=== PATIENT | female | born 1945 | race Caucasian/White ===

== ENCOUNTER 2017-11-11 15:08 | Inpatient (IN) | payer MEDICARE, BC ==
[~2017-11-11] VITALS: Ht 152.4 cm; Wt 85.5 kg
[~2017-11-11 15:08] MED LIST: ASPI-183 PO; ATAC32TA PO; CALC1CAP PO; CLON-481 PO; D31000CA3 PO; DOXA1TAB35 PO; FURO1TAB60 PO; LANTUS2P SQ; MIRA33504 PO; NIFE60TA58 PO; OMEG1CAP50 PO; PERI8.6T PO; RENACAP2 PO; VITA10002 PO
[2017-11-11 15:09] VITALS: BP 115/56; PULSE 76; RESP 12; TEMP 97.7; O2SAT 95
[2017-11-11 16:55] LABS: AUTOMATED NEUTROPHIL # 7.1 TH/MM3 (1.8-7.7); BASOPHIL # 0.1 TH/MM3 (0-0.2); EOSINOPHIL # 0.3 TH/MM3 (0-0.4); EOSINOPHIL % 3.3 % (0.0-4.0); HEMATOCRIT 37.6 % (35.0-46.0); HEMO FLAGS DIFF FINAL; LYMPH % 14.4 % (9.0-44.0); LYMPHOCYTE # 1.4 TH/MM3 (1.0-4.8); MEAN CELL VOLUME 90.2 FL (80.0-100.0); MEAN CORPUSCULAR HEMOGLOBIN 28.5 PG (27.0-34.0); MEAN CORPUSCULAR HGB CONC 31.6 % (32.0-36.0); MONO % 9.8 % (0.0-8.0); NEUT % 71.5 % (16.0-70.0); PLATELET COUNT 294 TH/MM3 (150-450); RED BLOOD COUNT 4.17 MIL/MM3 (4.00-5.30); RED CELL DISTRIBUTION WIDTH 17.6 % (11.6-17.2); WHITE BLOOD COUNT 9.9 TH/MM3 (4.0-11.0)
[2017-11-11 17:06] VITALS: BP 159/71; PULSE 75; RESP 14; O2SAT 96
[2017-11-11 17:08] LABS: APTT (PATIENT) 23.6 SEC (24.3-30.1); PROTHROMBIN TIME - PATIENT 10.5 SEC (9.8-11.6)
[2017-11-11 17:15] LABS: ALT (GPT) 16 U/L (10-53); ANION GAP 17 MEQ/L (5-15); AST (GOT) 14 U/L (15-37); BICARBONATE 22.4 MEQ/L (21.0-32.0); BLOOD UREA NITROGEN 55 MG/DL (7-18); CHLORIDE 93 MEQ/L (98-107); GLOMERULAR FILTRATION RATE 3 ML/MIN (>89); MAGNESIUM 3.5 MG/DL (1.5-2.5); POTASSIUM 4.9 MEQ/L (3.5-5.1); SODIUM (NA) 132 MEQ/L (136-145)
[2017-11-11 17:18] LABS: ALKALINE PHOSPHATASE 116 U/L (45-117); CREATINE KINASE 125 U/L (26-192); TOTAL BILIRUBIN ADULT 0.4 MG/DL (0.2-1.0)
[2017-11-11 17:34] LABS: CKMB 4.5 NG/ML (0.5-3.6)
--- NOTE | 2017-11-11 17:34 | PD ---
Physical Exam Date Seen by Provider: Nov 11, 2017 Narrative This patient presents with multiple complaints including shortness of breath for the last year and a half, dizziness for the last year and a half. She reports rectal bleeding X 1 today. She has been seen by her PMD, nephrology, and GI with no etiology found. She has refused EGD. Data Data Last Documented VS Vital Signs Date Time Temp Pulse Resp B/P (MAP) Pulse Ox O2 Delivery O2 Flow Rate FiO2 11/11/17 17:06 75 14 159/71 (100) 96 11/11/17 17:06 Room Air 11/11/17 15:09 97.7 Orders Orders Electrocardiogram (11/11/17 15:16) Complete Blood Count With Diff (11/11/17 15:16) Comprehensive Metabolic Panel (11/11/17 15:16) Magnesium (Mg) (11/11/17 15:16) Ckmb (Isoenzyme) Profile (11/11/17 15:16) Troponin I (11/11/17 15:16) Act Partial Throm Time (Ptt) (11/11/17 15:16) Prothrombin Time / Inr (Pt) (11/11/17 15:16) Urinalysis - C+S If Indicated (11/11/17 15:16) CKMB (11/11/17 16:20) CKMB% (11/11/17 16:20) Labs Laboratory Tests Test 11/11/17 16:20 White Blood Count 9.9 TH/MM3 Red Blood Count 4.17 MIL/MM3 Hemoglobin 11.9 GM/DL Hematocrit 37.6 % Mean Corpuscular Volume 90.2 FL Mean Corpuscular Hemoglobin 28.5 PG Mean Corpuscular Hemoglobin Concent 31.6 % Red Cell Distribution Width 17.6 % Platelet Count 294 TH/MM3 Mean Platelet Volume 9.9 FL Neutrophils (%) (Auto) 71.5 % Lymphocytes (%) (Auto) 14.4 % Monocytes (%) (Auto) 9.8 % Eosinophils (%) (Auto) 3.3 % Basophils (%) (Auto) 1.0 % Neutrophils # (Auto) 7.1 TH/MM3 Lymphocytes # (Auto) 1.4 TH/MM3 Monocytes # (Auto) 1.0 TH/MM3 Eosinophils # (Auto) 0.3 TH/MM3 Basophils # (Auto) 0.1 TH/MM3 CBC Comment DIFF FINAL Differential Comment Prothrombin Time 10.5 SEC Prothromb Time International Ratio 1.0 RATIO Activated Partial Thromboplast Time 23.6 SEC Blood Urea Nitrogen 55 MG/DL Creatinine 12.97 MG/DL Random Glucose 233 MG/DL Total Protein 7.4 GM/DL Albumin 3.4 GM/DL Calcium Level 7.9 MG/DL Magnesium Level 3.5 MG/DL Alkaline Phosphatase 116 U/L Aspartate Amino Transf (AST/SGOT) 14 U/L Alanine Aminotransferase (ALT/SGPT) 16 U/L Total Bilirubin 0.4 MG/DL Sodium Level 132 MEQ/L Potassium Level 4.9 MEQ/L Chloride Level 93 MEQ/L Carbon Dioxide Level 22.4 MEQ/L Anion Gap 17 MEQ/L Estimat Glomerular Filtration Rate 3 ML/MIN Total Creatine Kinase 125 U/L Creatine Kinase MB 4.5 NG/ML Troponin I 0.11 NG/ML MDM Supervised Visit with COOPER: Yes Narrative Course I, Dr. Cedeno, have reviewed the advance practice practitioner's documentation and am in agreement, met with the patient face to face, made the diagnosis, and the medical decision making was done by me. *My assessment and Findings: The patient is sitting up on the stretcher in no acute distress. Please see Fany Oneal PA-C's note for further details, lab and radiology results, final diagnosis and disposition. Dang Cedeno MD Nov 11, 2017 17:33
--- NOTE | 2017-11-11 17:41 | PD ---
HPI Chief Complaint: Dizziness Time Seen by Provider: 17:10 Travel History International Travel<30 days: No Contact w/Intl Traveler<30days: No Traveled to known affect area: No History of Present Illness HPI 72-year-old female presents to emergency department complaining of headache, dizziness, nausea, shortness of breath, and vomiting for approximately 1.5 years. Patient states that she also feels increasingly fatigued and fell twice yesterday. Patient states that she felt dizzy and fell to her knees yesterday and has had multiple falls previously. Denies head trauma, LOC. Today she noticed a bright red bleeding in her stool once today. Patient has end-stage renal disease on peritoneal dialysis every night. States her dialysis was changed recently in increase replacement fluids. She has a history of diabetes. Family states that she is due for an endoscopy to evaluate her nausea and vomiting but has refused this previously. PFSH Past Medical History Hx Anticoagulant Therapy: Yes Arthritis: No Autoimmune Disease: No Anxiety: Yes Depression: No Heart Rhythm Problems: No Cancer: No Cardiovascular Problems: Yes High Cholesterol: Yes Chemotherapy: No Chest Pain: No Congestive Heart Failure: Yes COPD: Yes Cerebrovascular Accident: No Coronary Artery Disease: No Diabetes: Yes Diminished Hearing: No Endocrine: No Gastrointestinal Disorders: Yes (CONSTIPATION) GERD: No Genitourinary: No Headaches: Yes (occasional) Hepatitis: No Hiatal Hernia: No Hypertension: Yes (HX HYPERTENSIVE CRISIS) Immune Disorder: No Implanted Vascular Access Dvce: No Kidney Stones: No Musculoskeletal: No Neurologic: Yes (NEUROPATHY FEET) Psychiatric: Yes (CLAUSTRAPHOBIA) Reproductive: No Respiratory: Yes Migraines: No Radiation Therapy: No Renal Failure: Yes Seizures: No Sickle Cell Disease: No Sleep Apnea: No Thyroid Disease: No Ulcer: No Menopausal: Yes Past Surgical History Abdominal Surgery: No AICD: No Arteriovenous Shunt: No Cardiac Surgery: No Section: Yes (x2) Ear Surgery: No Endocrine Surgery: No Eye Surgery: Yes (lasik YOLIE., YOLIE. CATARACT EXTRACT.) Genitourinary Surgery: No Gynecologic Surgery: Yes Insulin Pump: No Joint Replacement: No Neurologic Surgery: No Oral Surgery: Yes Pacemaker: No Thoracic Surgery: No Tonsillectomy: Yes Other Surgery: Yes Social History Alcohol Use: No Tobacco Use: No Substance Use: No Allergies-Medications (Allergen,Severity, Reaction): Coded Allergies: Iodinated Contrast- Oral and IV Dye (Unverified Allergy, Severe, Tachycardia, 07/09/17) cyclopentolate (Unverified Allergy, Severe, Shortness of Breath, 07/09/17) dexamethasone (Unverified Allergy, Severe, Shortness of Breath, 07/09/17) diatrizoate meglumine (Unverified Allergy, Severe, DYSPNEA, SWELLING, 07/09) gadobenic acid (Unverified Allergy, Severe, DYSPNEA, SWELLING, 07/09/17) gadodiamide (Unverified Allergy, Severe, DYSPNEA, SWELLING, 07/09/17) gadoteridol (Unverified Allergy, Severe, DYSPNEA, SWELLING, 07/09/17) iodixanol (Unverified Allergy, Severe, DYSPNEA, SWELLING, 07/09/17) iohexol (Unverified Allergy, Severe, DYSPNEA, SWELLING, 07/09/17) labetalol (Unverified Allergy, Severe, Itching, 07/09/17) HIVES ofloxacin (Unverified Allergy, Severe, Shortness of Breath, 07/09/17) tobramycin (Unverified Allergy, Severe, Shortness of Breath, 07/09/17) bevacizumab (Unverified Allergy, Unknown, 07/09/17) candesartan (Unverified Allergy, Unknown, 07/09/17) exenatide (Unverified Allergy, Unknown, 07/09/17) lisinopril (Unverified Allergy, Unknown, 07/09/17) methylprednisolone (Unverified Allergy, Unknown, 07/09/17) terfenadine (Unverified Allergy, Unknown, 07/09/17) diphenhydramine (Unverified Adverse Reaction, Unknown, 07/09/17) guanfacine (Unverified Adverse Reaction, Unknown, 07/09/17) hydralazine (Unverified Adverse Reaction, Unknown, 07/09/17) hydroxyzine (Unverified Adverse Reaction, Unknown, 07/09/17) lorazepam (Unverified Adverse Reaction, Unknown, 07/09/17) metoprolol (Unverified Adverse Reaction, Unknown, 07/09/17) nebivolol (Unverified Adverse Reaction, Unknown, 07/09/17) prednisone (Unverified Adverse Reaction, Unknown, 07/09/17) spironolactone (Unverified Adverse Reaction, Unknown, 07/09/17) warfarin (Unverified Adverse Reaction, Unknown, 07/09/17) Uncoded Allergies: BLOOD PRESSURE MEDS (Allergy, Severe, UNKNOWN, 03/19/11) SELDENE (Allergy, Severe, HIVES, 03/19/11) STEROID EYE DROPS (Allergy, Severe, ITCHING, BP ELEVATED, 10/04/16) Reported Meds & Prescriptions Reported Meds & Active Scripts Active Reported Crestor (Rosuvastatin Calcium) 10 Mg Tab 10 Mg PO DAILY Renal Vitamin (B-Complex W/ C & Folic Acid) 1 Cap 1 Cap PO DAILY If on dialysis, take after treatment. Tyler 3 500 500 mg (Tyler-3 Fatty Acids) 1 Cap Cap 1 Cap PO DAILY Vitamin D-3 (Cholecalciferol) 1,000 Unit Cap 1 Cap PO MWF Doxazosin (Doxazosin Mesylate) 2 Mg Tab 2 Mg PO BID Atacand (Candesartan Cilexetil) 32 Mg Tab 32 Mg PO DAILY Aspirin 325 Mg Tab 325 Mg PO DAILY Catapres (Clonidine) 0.3 Mg Tab 0.3 Mg PO Q8HR Lantus Inj (Insulin Glargine) 1,000 Unit/10 Ml Vial 16-23 Units SQ HS Lasix (Furosemide) 40 Mg Tab 80 Mg PO BID Vitamin B-12 (Cyanocobalamin) 1,000 Mcg Tab 1,000 Mcg PO DAILY Calcium Acetate (Phosphate Binder) 667 Mg Cap 667 Mg PO TID Nifedipine ER 24 HR (Nifedipine) 60 Mg Tab 60 Mg PO BID Review of Systems Except as stated in HPI: all other systems reviewed are Neg Physical Exam Narrative GENERAL: Well-developed well-nourished in no apparent distress SKIN: Focused skin assessment warm/dry. HEAD: Atraumatic. Normocephalic. EYES: Pupils equal and round. No scleral icterus. No injection or drainage. ENT: No nasal bleeding or discharge. Mucous membranes pink and moist. NECK: Trachea midline. No JVD. CARDIOVASCULAR: Regular rate and rhythm. No murmur appreciated. RESPIRATORY: No accessory muscle use. Clear to auscultation. Breath sounds equal bilaterally. GASTROINTESTINAL: Abdomen soft, non-tender, nondistended. Hepatic and splenic margins not palpable. MUSCULOSKELETAL: No obvious deformities. No clubbing. No cyanosis. No edema. Rectal exam: good rectal tone, BRB mixed with melena. NEUROLOGICAL: Awake and alert. No obvious cranial nerve deficits. Motor grossly within normal limits. Normal speech. PSYCHIATRIC: Appropriate mood and affect; insight and judgment normal. Data Data Last Documented VS Vital Signs Date Time Temp Pulse Resp B/P (MAP) Pulse Ox O2 Delivery O2 Flow Rate FiO2 11/11/17 17:06 75 14 159/71 (100) 96 11/11/17 17:06 Room Air 11/11/17 15:09 97.7 Orders Orders Electrocardiogram (11/11/17 15:16) Complete Blood Count With Diff (11/11/17 15:16) Comprehensive Metabolic Panel (11/11/17 15:16) Magnesium (Mg) (11/11/17 15:16) Ckmb (Isoenzyme) Profile (11/11/17 15:16) Troponin I (11/11/17 15:16) Act Partial Throm Time (Ptt) (11/11/17 15:16) Prothrombin Time / Inr (Pt) (11/11/17 15:16) CKMB (11/11/17 16:20) CKMB% (11/11/17 16:20) Ct Abd/Pel W/O Iv Contrast (11/11/17 ) ^ Other Nursing Orders (11/11/17 21:00) Admit To Inpatient (11/11/17 ) Vital Signs (Adult) Q4H (11/11/17 21:01) Activity Oob With Assistance (11/11/17 21:01) Last Marker / Telemetry .CONTINUOUS (11/11/17 21:01) Intake + Output JULIO.QSHIFT (11/11/17 21:01) Diet Clear Liquid (11/12/17 Breakfast) Sodium Chloride 0.9% Flush (Ns Flush) (11/11/17 21:15) Sodium Chloride 0.9% Flush (Ns Flush) (11/12/17 09:00) Comprehensive Metabolic Panel (11/12/17 06:00) Complete Blood Count With Diff (11/12/17 06:00) Creatine Kinase (Cpk) (11/12/17 00:20) Creatine Kinase (Cpk) (11/12/17 06:20) Troponin I (11/12/17 00:20) Troponin I (11/12/17 06:20) Electrocardiogram (11/12/17 00:20) Electrocardiogram (11/12/17 06:20) Pt Request For Service (11/11/17 21:01) Scd Bilateral/Knee High JULIO.BID (11/11/17 21:01) Herbie Bilateral/Knee High JULIO.QSHIFT (11/11/17 21:01) Naloxone Inj (Narcan Inj) (11/11/17 21:15) Inpatient Certification (11/11/17 ) Hgb & Hct (11/12/17 00:20) Hgb & Hct (11/12/17 12:20) Hgb & Hct (11/12/17 18:20) Consult Gastroenterology (11/11/17 ) Bedside Glucose JULIO.CSUGAR (11/11/17 21:17) Special Diet Instructions (11/11/17 21:17) Blood Glucose Goal (Criteria) (11/11/17 21:17) Hypoglycemia 70 Mg/Dl Or < (11/11/17 21:17) Notify Dr: Other (11/11/17 21:17) Dextrose 50% In Moira (Vial) Inj (D50w (Vi (11/11/17 21:30) Glucagon Inj (Glucagon Inj) (11/11/17 21:30) Insulin Aspart Supplemtl Scale (Novolog (11/12/17 08:00) ^ Dialysis Permit (11/11/17 21:15) Notify Dr: Other (11/11/17 21:15) ^ Dialysis Catheter Care (11/11/17 21:15) ^ Dialysis Dressing JULIO.Q2D (11/11/17 21:15) ^ Dialysis Orders (11/11/17 21:15) Heparin Inj (Heparin Inj) (11/11/17 21:15) Sodium Chloride 0.9% Flush (Ns Flush) (11/11/17 21:15) Admit Order (Ed Use Only) (11/11/17 21:15) Labs Laboratory Tests Test 11/11/17 16:20 White Blood Count 9.9 TH/MM3 Red Blood Count 4.17 MIL/MM3 Hemoglobin 11.9 GM/DL Hematocrit 37.6 % Mean Corpuscular Volume 90.2 FL Mean Corpuscular Hemoglobin 28.5 PG Mean Corpuscular Hemoglobin Concent 31.6 % Red Cell Distribution Width 17.6 % Platelet Count 294 TH/MM3 Mean Platelet Volume 9.9 FL Neutrophils (%) (Auto) 71.5 % Lymphocytes (%) (Auto) 14.4 % Monocytes (%) (Auto) 9.8 % Eosinophils (%) (Auto) 3.3 % Basophils (%) (Auto) 1.0 % Neutrophils # (Auto) 7.1 TH/MM3 Lymphocytes # (Auto) 1.4 TH/MM3 Monocytes # (Auto) 1.0 TH/MM3 Eosinophils # (Auto) 0.3 TH/MM3 Basophils # (Auto) 0.1 TH/MM3 CBC Comment DIFF FINAL Differential Comment Prothrombin Time 10.5 SEC Prothromb Time International Ratio 1.0 RATIO Activated Partial Thromboplast Time 23.6 SEC Blood Urea Nitrogen 55 MG/DL Creatinine 12.97 MG/DL Random Glucose 233 MG/DL Total Protein 7.4 GM/DL Albumin 3.4 GM/DL Calcium Level 7.9 MG/DL Magnesium Level 3.5 MG/DL Alkaline Phosphatase 116 U/L Aspartate Amino Transf (AST/SGOT) 14 U/L Alanine Aminotransferase (ALT/SGPT) 16 U/L Total Bilirubin 0.4 MG/DL Sodium Level 132 MEQ/L Potassium Level 4.9 MEQ/L Chloride Level 93 MEQ/L Carbon Dioxide Level 22.4 MEQ/L Anion Gap 17 MEQ/L Estimat Glomerular Filtration Rate 3 ML/MIN Total Creatine Kinase 125 U/L Creatine Kinase MB 4.5 NG/ML Troponin I 0.11 NG/ML MDM Medical Decision Making Medical Screen Exam Complete: Yes Emergency Medical Condition: Yes Differential Diagnosis ESRD, metabolic disturbance, Narrative Course 72-year-old female with a history of end-stage renal disease on peritoneal dialysis presents to emergency department complaining of headache, dizziness, nausea, shortness of breath, and vomiting for approximately 1.5 years. Patient states that she also feels increasingly fatigued and fell twice yesterday. Patient states that she felt dizzy and had an assisted fall to her knees yesterday. Denies head trauma, LOC. Patient denies neck or back pain. Today she noticed a bright red bleeding in her stool once today which is why she is here today. Patient has end-stage renal disease on peritoneal dialysis every night. States her dialysis was changed recently in increase replacement fluids. She has a history of diabetes. Family states that she is due for an endoscopy to evaluate her nausea and vomiting but has refused this previously. Vital signs stable. Hemodynamically stable Patient does produce a small amount of urine. Difficulty evaluating UA secondary to ESRD on peritoneal dialysis. Urine canceled. CBC & BMP Diagram 11/11/17 16:20 Total Protein 7.4, Albumin 3.4, Calcium Level 7.9 L, Magnesium Level 3.5 H, Alkaline Phosphatase 116, Aspartate Amino Transf (AST/SGOT) 14 L, Alanine Aminotransferase (ALT/SGPT) 16, Total Bilirubin 0.4 Troponin mildly elevated at 0.11. Likely secondary to her dialysis status. EKG-sinus rhythm with nonspecific T-wave abnormalities. No ST depression or elevation. Patient's symptoms are chronic. Again patient comes to the emergency department concerned about one episode of bright red bleeding per rectum. She also complains of chronic fatigue, shortness of breath, and nausea that is being followed as an outpatient. She has been evaluated by GI previously and was recommended to obtain an endoscopy but refused. I discuss this with the patient and strongly advised patient to follow up with GI as an outpatient. I discussed this case with my attending. CT pending as of sign off to Dr. Gerber. [facility] Point of Care Internal Pos. & Neg. Controls: Passed Fecal Specimen Occult Blood: Positive Diagnosis Primary Impression: Chronic kidney disease (CKD), stage V Additional Impression: Hematochezia Condition: Stable Fany Oneal Nov 11, 2017 17:41
[2017-11-11] MEDS ORDERED: ROSU10 PO (19:06)
--- NOTE | 2017-11-11 19:32 | PD ---
Physical Exam Date Seen by Provider: Nov 11, 2017 Time Seen by Provider: 19:00 Narrative She was signed out to me by Dr. Dang Cedeno at change of shift. Please see her H&P for further details. We're awaiting laboratory tests and CT scan. Data Data Last Documented VS Vital Signs Date Time Temp Pulse Resp B/P (MAP) Pulse Ox O2 Delivery O2 Flow Rate FiO2 11/11/17 17:06 75 14 159/71 (100) 96 11/11/17 17:06 Room Air 11/11/17 15:09 97.7 Orders Orders Electrocardiogram (11/11/17 15:16) Complete Blood Count With Diff (11/11/17 15:16) Comprehensive Metabolic Panel (11/11/17 15:16) Magnesium (Mg) (11/11/17 15:16) Ckmb (Isoenzyme) Profile (11/11/17 15:16) Troponin I (11/11/17 15:16) Act Partial Throm Time (Ptt) (11/11/17 15:16) Prothrombin Time / Inr (Pt) (11/11/17 15:16) Urinalysis - C+S If Indicated (11/11/17 15:16) CKMB (11/11/17 16:20) CKMB% (11/11/17 16:20) Ct Abd/Pel W/O Iv Contrast (11/11/17 ) ^ Other Nursing Orders (11/11/17 21:00) Admit To Inpatient (11/11/17 ) Vital Signs (Adult) Q4H (11/11/17 21:01) Activity Oob With Assistance (11/11/17 21:01) Connie Scratcher / Telemetry .CONTINUOUS (11/11/17 21:01) Intake + Output JULIO.QSHIFT (11/11/17 21:01) Diet Clear Liquid (11/12/17 Breakfast) Sodium Chloride 0.9% Flush (Ns Flush) (11/11/17 21:15) Sodium Chloride 0.9% Flush (Ns Flush) (11/12/17 09:00) Comprehensive Metabolic Panel (11/12/17 06:00) Complete Blood Count With Diff (11/12/17 06:00) Creatine Kinase (Cpk) (11/12/17 00:20) Creatine Kinase (Cpk) (11/12/17 06:20) Troponin I (11/12/17 00:20) Troponin I (11/12/17 06:20) Electrocardiogram (11/12/17 00:20) Electrocardiogram (11/12/17 06:20) Pt Request For Service (11/11/17 21:01) Scd Bilateral/Knee High JULIO.BID (11/11/17 21:01) Herbie Bilateral/Knee High JULIO.QSHIFT (11/11/17 21:01) Naloxone Inj (Narcan Inj) (11/11/17 21:15) Inpatient Certification (11/11/17 ) Hgb & Hct (11/12/17 00:20) Hgb & Hct (11/12/17 06:20) Hgb & Hct (11/12/17 12:20) Hgb & Hct (11/12/17 18:20) Consult Gastroenterology (11/11/17 ) Bedside Glucose JULIO.CSUGAR (11/11/17 21:17) Special Diet Instructions (11/11/17 21:17) Blood Glucose Goal (Criteria) (11/11/17 21:17) Hypoglycemia 70 Mg/Dl Or < (11/11/17 21:17) Notify Dr: Other (11/11/17 21:17) Dextrose 50% In Moira (Vial) Inj (D50w (Vi (11/11/17 21:30) Glucagon Inj (Glucagon Inj) (11/11/17 21:30) Insulin Aspart Supplemtl Scale (Novolog (11/12/17 08:00) ^ Dialysis Permit (11/11/17 21:15) Notify Dr: Other (11/11/17 21:15) ^ Dialysis Catheter Care (11/11/17 21:15) ^ Dialysis Dressing JULIO.Q2D (11/11/17 21:15) ^ Dialysis Orders (11/11/17 21:15) Heparin Inj (Heparin Inj) (11/11/17 21:15) Sodium Chloride 0.9% Flush (Ns Flush) (11/11/17 21:15) Admit Order (Ed Use Only) (11/11/17 21:15) Labs Laboratory Tests Test 11/11/17 16:20 White Blood Count 9.9 TH/MM3 Red Blood Count 4.17 MIL/MM3 Hemoglobin 11.9 GM/DL Hematocrit 37.6 % Mean Corpuscular Volume 90.2 FL Mean Corpuscular Hemoglobin 28.5 PG Mean Corpuscular Hemoglobin Concent 31.6 % Red Cell Distribution Width 17.6 % Platelet Count 294 TH/MM3 Mean Platelet Volume 9.9 FL Neutrophils (%) (Auto) 71.5 % Lymphocytes (%) (Auto) 14.4 % Monocytes (%) (Auto) 9.8 % Eosinophils (%) (Auto) 3.3 % Basophils (%) (Auto) 1.0 % Neutrophils # (Auto) 7.1 TH/MM3 Lymphocytes # (Auto) 1.4 TH/MM3 Monocytes # (Auto) 1.0 TH/MM3 Eosinophils # (Auto) 0.3 TH/MM3 Basophils # (Auto) 0.1 TH/MM3 CBC Comment DIFF FINAL Differential Comment Prothrombin Time 10.5 SEC Prothromb Time International Ratio 1.0 RATIO Activated Partial Thromboplast Time 23.6 SEC Blood Urea Nitrogen 55 MG/DL Creatinine 12.97 MG/DL Random Glucose 233 MG/DL Total Protein 7.4 GM/DL Albumin 3.4 GM/DL Calcium Level 7.9 MG/DL Magnesium Level 3.5 MG/DL Alkaline Phosphatase 116 U/L Aspartate Amino Transf (AST/SGOT) 14 U/L Alanine Aminotransferase (ALT/SGPT) 16 U/L Total Bilirubin 0.4 MG/DL Sodium Level 132 MEQ/L Potassium Level 4.9 MEQ/L Chloride Level 93 MEQ/L Carbon Dioxide Level 22.4 MEQ/L Anion Gap 17 MEQ/L Estimat Glomerular Filtration Rate 3 ML/MIN Total Creatine Kinase 125 U/L Creatine Kinase MB 4.5 NG/ML Troponin I 0.11 NG/ML [facility] Medical Record Reviewed: Yes Supervised Visit with COOPER: Yes Differential Diagnosis Metabolic arrangement versus anemia versus diverticulitis versus intra- abdominal pathology Narrative Course 9-year-old female history renal failure, peritoneal dialysis to pain, presents today with complaints of blood in her stool. Patient states that she was told she would need to have an endoscopy however has not had that because she did not want to have anything put down her throat. The patient is hemodynamically stable. Her troponin is slightly elevated. The patient has no chest pain. EKG shows no evidence of acute ST elevation or depression. Given the elevated enzyme and the heme positive stool, patient be admitted for observation status. I discussed with both her and her family the plan. I stated that they would be a gastroenterology consult however this did not mean it for sure she would have an inpatient endoscopy. We will rule her out. She'll be placed on clear liquid diet. [facility]. Diagnosis Primary Impression: Chronic kidney disease (CKD), stage V Additional Impressions: GI bleed Elevated troponin Admitting Information Admitting Physician Requests: Observation Condition: Stable Francisco J Gerber MD Nov 11, 2017 19:32
--- NOTE | 2017-11-11 20:06 | RADRPT ---
EXAM DATE/TIME: 11/11/2017 19:10 [facility] COMPARISON: No previous studies available for comparison. INDICATIONS : Blood in stool,nausea,vomiting,dizzy. ORAL CONTRAST: No oral contrast ingested. RADIATION DOSE: 10.23 CTDIvol (mGy) MEDICAL HISTORY : Cardiovascular disease. Renal failure, chronic. Deep venous thrombosis.COPD,Hypertension SURGICAL HISTORY : section. ENCOUNTER: Initial ACUITY: 1 week PAIN SCALE: 8/10 LOCATION: Abdomen TECHNIQUE: Volumetric scanning of the abdomen and pelvis was performed. Using automated exposure control and ad justment of the mA and/or kV according to patient size, radiation dose was kept as low as reasonably achievable to obtain optimal diagnostic quality images. DICOM format image data is available electro nically for review and comparison. FINDINGS: LOWER LUNGS: The visualized lower lungs are clear. LIVER: Homogeneous density without lesion for noncontrast technique. There is no dilation of the biliary tr ee. No calcified gallstones. SPLEEN: Normal size without lesion. PANCREAS: Within normal limits. KIDNEYS: Normal in size and shape. There is no mass, stone, or hydronephrosis. ADRENAL GLANDS: Within normal limits. VASCULAR: There is no aortic aneurysm. Prominent vascular calcification. BOWEL/MESENTERY: No dilated loops of small or large bowel. CAPD catheter coiled in the pelvis. No evidence of free f luid. ABDOMINAL WALL: Within normal limits. RETROPERITONEUM: There is no lymphadenopathy. BLADDER: No wall thickening or mass. REPRODUCTIVE: Within normal limits. INGUINAL: There is no lymphadenopathy or hernia. MUSCULOSKELETAL: Within normal limits for patient age. CONCLUSION: Negative noncontrast CT abdomen/pelvis. Lazaro Mendez MD on November 11, 2017 at 20:01 Board Certified Radiologist. This report was verified electronically.
[2017-11-11] MEDS ORDERED: SODIUM CHLORIDE 0.9% FLUSH 10 ML FLUSH IV FLUSH PRN ×2 (21:15)
[2017-11-11] MEDS ORDERED: HEPARIN SODIUM - IV 10,000 UNITS/10 ML VIAL XX PRN (21:15)
[2017-11-11] MEDS ORDERED: NALOXONE HCL 0.4 MG/ML AMP IV PUSH PRN (21:15)
[2017-11-11] MEDS ORDERED: GLUCAGON 1 MG/ML VIAL OTHER PRN (21:30)
[2017-11-11] MEDS ORDERED: DEXTROSE 50% IN WATER 50 ML VIAL(D50) IV PUSH PRN (21:30)
[2017-11-12] VITALS (10 sets, daily range): BP systolic 131–189; BP diastolic 62–84; PULSE 59–82; RESP 18–20; TEMP 97.7–98.8; O2SAT 91–98
[2017-11-12] MEDS: INSULIN DETEMIR 100 UNITS/ML VIAL SQ SCH ×3 (00:28→22:02)
[2017-11-12 01:02] LABS: HEMATOCRIT 35.2 % (35.0-46.0); REVIEW FLAG FINAL
[2017-11-12] MEDS: INSULIN ASPART SUPPLEMENTAL SCALE SQ SCH ×4 (08:00→22:02)
[2017-11-12 08:22] LABS: BACTERIA, URINE FEW /hpf; BLOOD, URINE SMALL (NEG); COMMENT (UR) CULTURE INDICATED; CULTURE IF INDICATED CULTURE INDICATED; GLUCOSE,URINE 300 mg/dL (NEG); KETONE, URINE NEG (NEG); MUCUS URINE FEW /lpf (OCC); NITRITE,URINE NEG (NEG); PH, URINE 6.5 (5.0-8.5); RENAL EPITHELIAL CELLS 1 /hpf; SQUAMOUS EPITHELIAL CELL URINE 6 /hpf (0-5); TRANSITIONAL EPI CELLS, URINE <1 /hpf; URINE COLOR YELLOW (YELLW/STRAW)
[2017-11-12] MEDS ORDERED: SODIUM CHLORIDE 0.9% FLUSH 10 ML FLUSH IV FLUSH SCH (09:00)
[2017-11-12] MEDS ORDERED: HEPARIN SODIUM - IV 10,000 UNITS/10 ML VIAL XX PRN (10:30)
[2017-11-12] MEDS ORDERED: SODIUM CHLORIDE 0.9% FLUSH 10 ML FLUSH IV FLUSH PRN ×2 (10:30→13:15)
--- NOTE | 2017-11-12 11:12 | PD.CONS ---
HPI History of Present Illness This is an obese 72 year old presented to the emergency room on 11/11/17 in the afternoon with nausea and vomiting, onset of symptoms has worsened over the past 2 weeks. She also notes that her nausea has persisted since November 2015 around the time that her peritoneal dialysis was initiated. Patient had recent gastric emptying study on August 2017 which showed normal parameters with Reglan. Colonoscopy was done April 2017 that showed diverticular disease. She also notes some constipation 2 over the past few days and when flushing the toilet did note some blood in the water. She also notes symptoms of reflux, fatigue, weight loss of approximately 3 pounds in 1 week. She denies any abdominal pain or dysphagia. She has supportive family in room assisting with her history. (Radha Bettencourt) PFSH Past Medical History Hypertension Diabetes mellitus COPD End-stage renal disease currently on peritoneal dialysis since November 2015 Hyperlipidemia Past Surgical History Nonrecent (Radha Bettencourt) Coded Allergies: Iodinated Contrast- Oral and IV Dye (Unverified Allergy, Severe, Tachycardia, 07/09/17) cyclopentolate (Unverified Allergy, Severe, Shortness of Breath, 07/09/17) dexamethasone (Unverified Allergy, Severe, Shortness of Breath, 07/09/17) diatrizoate meglumine (Unverified Allergy, Severe, DYSPNEA, SWELLING, 07/09) gadobenic acid (Unverified Allergy, Severe, DYSPNEA, SWELLING, 07/09/17) gadodiamide (Unverified Allergy, Severe, DYSPNEA, SWELLING, 07/09/17) gadoteridol (Unverified Allergy, Severe, DYSPNEA, SWELLING, 07/09/17) iodixanol (Unverified Allergy, Severe, DYSPNEA, SWELLING, 07/09/17) iohexol (Unverified Allergy, Severe, DYSPNEA, SWELLING, 07/09/17) labetalol (Unverified Allergy, Severe, Itching, 07/09/17) HIVES ofloxacin (Unverified Allergy, Severe, Shortness of Breath, 07/09/17) tobramycin (Unverified Allergy, Severe, Shortness of Breath, 07/09/17) bevacizumab (Unverified Allergy, Unknown, 07/09/17) candesartan (Unverified Allergy, Unknown, 07/09/17) exenatide (Unverified Allergy, Unknown, 07/09/17) lisinopril (Unverified Allergy, Unknown, 07/09/17) methylprednisolone (Unverified Allergy, Unknown, 07/09/17) terfenadine (Unverified Allergy, Unknown, 07/09/17) diphenhydramine (Unverified Adverse Reaction, Unknown, 07/09/17) guanfacine (Unverified Adverse Reaction, Unknown, 07/09/17) hydralazine (Unverified Adverse Reaction, Unknown, 07/09/17) hydroxyzine (Unverified Adverse Reaction, Unknown, 07/09/17) lorazepam (Unverified Adverse Reaction, Unknown, 07/09/17) metoprolol (Unverified Adverse Reaction, Unknown, 07/09/17) nebivolol (Unverified Adverse Reaction, Unknown, 07/09/17) prednisone (Unverified Adverse Reaction, Unknown, 07/09/17) spironolactone (Unverified Adverse Reaction, Unknown, 07/09/17) warfarin (Unverified Adverse Reaction, Unknown, 07/09/17) Uncoded Allergies: BLOOD PRESSURE MEDS (Allergy, Severe, UNKNOWN, 03/19/11) SELDENE (Allergy, Severe, HIVES, 03/19/11) STEROID EYE DROPS (Allergy, Severe, ITCHING, BP ELEVATED, 10/04/16) Social History No alcohol tobacco or illicit drugs (Radha Bettencourt) Review of Systems Constitutional: COMPLAINS OF: Fatigue, Weight loss (3 pounds) Gastrointestinal: COMPLAINS OF: Bloody stools, Constipation, Nausea, Vomiting ( Radha Bettencourt) GI Exam Vitals I&O Vital Signs Date Time Temp Pulse Resp B/P (MAP) Pulse Ox O2 Delivery O2 Flow Rate FiO2 11/12/17 07:41 97.7 75 20 183/77 (112) 93 11/12/17 04:37 98.8 68 18 131/68 (89) 98 11/12/17 00:00 98.0 74 18 158/84 (108) 97 11/11/17 22:27 11/11/17 17:06 75 14 159/71 (100) 96 12/18/17 17:06 75 14 95 Room Air 12/18/17 15:09 97.7 76 12 115/56 (75) 95 I/O 11/11/17 11/11/17 11/11/17 11/12/17 11/12/17 11/12/17 07:00 15:00 23:00 07:00 15:00 23:00 Intake Total 200 ml 300 ml Balance 200 ml 300 ml Intake Oral 200 ml 300 ml Imaging Last Impressions Abdomen/Pelvis CT 11/11/17 0000 Signed Impressions: Service Date/Time: Saturday, November 11, 2017 19:10 - CONCLUSION: Negative noncontrast CT abdomen/pelvis. Lazaro Mendez MD Laboratory Test 11/11/17 16:20 11/12/17 00:42 11/12/17 05:00 White Blood Count 9.9 TH/MM3 Red Blood Count 4.17 MIL/MM3 Hemoglobin 11.9 GM/DL 10.9 GM/DL Hematocrit 37.6 % 35.2 % Mean Corpuscular Volume 90.2 FL Mean Corpuscular Hemoglobin 28.5 PG Mean Corpuscular Hemoglobin Concent 31.6 % Red Cell Distribution Width 17.6 % Platelet Count 294 TH/MM3 Mean Platelet Volume 9.9 FL Neutrophils (%) (Auto) 71.5 % Lymphocytes (%) (Auto) 14.4 % Monocytes (%) (Auto) 9.8 % Eosinophils (%) (Auto) 3.3 % Basophils (%) (Auto) 1.0 % Neutrophils # (Auto) 7.1 TH/MM3 Lymphocytes # (Auto) 1.4 TH/MM3 Monocytes # (Auto) 1.0 TH/MM3 Eosinophils # (Auto) 0.3 TH/MM3 Basophils # (Auto) 0.1 TH/MM3 CBC Comment DIFF FINAL Differential Comment Prothrombin Time 10.5 SEC Prothromb Time International Ratio 1.0 RATIO Activated Partial Thromboplast Time 23.6 SEC Blood Urea Nitrogen 55 MG/DL Creatinine 12.97 MG/DL Random Glucose 233 MG/DL Total Protein 7.4 GM/DL Albumin 3.4 GM/DL Calcium Level 7.9 MG/DL Magnesium Level 3.5 MG/DL Alkaline Phosphatase 116 U/L Aspartate Amino Transf (AST/SGOT) 14 U/L Alanine Aminotransferase (ALT/SGPT) 16 U/L Total Bilirubin 0.4 MG/DL Sodium Level 132 MEQ/L Potassium Level 4.9 MEQ/L Chloride Level 93 MEQ/L Carbon Dioxide Level 22.4 MEQ/L Anion Gap 17 MEQ/L Estimat Glomerular Filtration Rate 3 ML/MIN Total Creatine Kinase 125 U/L 119 U/L Creatine Kinase MB 4.5 NG/ML Troponin I 0.11 NG/ML 0.11 NG/ML Urine Color YELLOW Urine Turbidity HAZY Urine pH 6.5 Urine Specific [place] 1.013 Urine Protein 300 mg/dL Urine Glucose (UA) 300 mg/dL Urine Ketones NEG mg/dL Urine Occult Blood SMALL Urine Nitrite NEG Urine Bilirubin NEG Urine Urobilinogen LESS THAN 2.0 MG/DL Urine Leukocyte Esterase LARGE Urine RBC 8 /hpf Urine WBC 35 /hpf Urine Squamous Epithelial Cells 6 /hpf Urine Transitional Epithelial Cells <1 /hpf Urine Renal Epithelial Cells 1 /hpf Urine Bacteria FEW /hpf Urine Mucus FEW /lpf Microscopic Urinalysis Comment CULTURE INDICATED Date/Time Source Procedure Growth Status 11/12/17 05:00 Urine Clean Catch Urine Culture Pending Received Physical Examination HEENT: Pupils round and reactive to light; normocephalic; atraumatic; no jaundice. NECK: Short, obese, Neck is supple, no JVD, no lymphadenopathy. CHEST: Chest is clear to auscultation and percussion. CARDIAC: Regular rate and rhythm with no murmur gallop or rubs. ABDOMEN: Soft, round, obese, nontender; no hepatosplenomegaly; bowel sounds are present in all four quadrants. EXTREMITIES: No clubbing, cyanosis, or edema. SKIN: Normal; no rash; no jaundice. 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00 - Constipation, unspecified Status: Acute (7) GI bleed ICD Codes: K92.2 - Gastrointestinal hemorrhage, unspecified Status: Acute Plan EGD scheduled for a.m., nothing by mouth at midnight except for meds Consents PPI Labs in the morning Monitor her intake and output Monitor number of nausea and vomiting episodes Clear liquids today Treatment Regimen will be dependent on findings and response to treatment Case discussed with , written on his behalf (Radha Bettencourt) Physician Comments Seen and examined with artur Garcia as above, will schedule EGD in AM. will follow up with you. (Oscar Butler MD) Radha Bettencourt Nov 12, 2017 11:12 Oscar Butler MD Nov 12, 2017 12:15
--- NOTE | 2017-11-12 11:25 | PD.CONS ---
[facility] Service Nephrology Consult Requested By Reason for Consult ESRD on PD Primary Care Physician Sylvester Allen DO History of Present Illness This is a very pleasant 72 y/o female patient. She came to ER for evaluation of persistent nausea, dizziness, and new rectal bleeding. She has been on PD for approximately one year it has been going well. She also has HTN, hyperlipidemia, and DM II. CT of abdomen was negative. Her hemoglobin is low normal. She did not have PD last night. Her family is present during the exam. We were consulted to assist with management. (Noemy Xie) Review of Systems Constitutional: COMPLAINS OF: Fatigue Cardiovascular: DENIES: Chest pain, Lower Extremity Edema Gastrointestinal: COMPLAINS OF: Bloody stools, Nausea, DENIES: Abdominal pain, Vomiting Neurologic: DENIES: Abnormal gait, Localized weakness (Noemy Xie) Past Family Social History Allergies: Coded Allergies: Iodinated Contrast- Oral and IV Dye (Unverified Allergy, Severe, Tachycardia, 07/09/17) cyclopentolate (Unverified Allergy, Severe, Shortness of Breath, 07/09/17) dexamethasone (Unverified Allergy, Severe, Shortness of Breath, 07/09/17) diatrizoate meglumine (Unverified Allergy, Severe, DYSPNEA, SWELLING, 07/09) gadobenic acid (Unverified Allergy, Severe, DYSPNEA, SWELLING, 07/09/17) gadodiamide (Unverified Allergy, Severe, DYSPNEA, SWELLING, 07/09/17) gadoteridol (Unverified Allergy, Severe, DYSPNEA, SWELLING, 07/09/17) iodixanol (Unverified Allergy, Severe, DYSPNEA, SWELLING, 07/09/17) iohexol (Unverified Allergy, Severe, DYSPNEA, SWELLING, 07/09/17) labetalol (Unverified Allergy, Severe, Itching, 07/09/17) HIVES ofloxacin (Unverified Allergy, Severe, Shortness of Breath, 07/09/17) tobramycin (Unverified Allergy, Severe, Shortness of Breath, 07/09/17) bevacizumab (Unverified Allergy, Unknown, 07/09/17) candesartan (Unverified Allergy, Unknown, 07/09/17) exenatide (Unverified Allergy, Unknown, 07/09/17) lisinopril (Unverified Allergy, Unknown, 07/09/17) methylprednisolone (Unverified Allergy, Unknown, 07/09/17) terfenadine (Unverified Allergy, Unknown, 07/09/17) diphenhydramine (Unverified Adverse Reaction, Unknown, 07/09/17) guanfacine (Unverified Adverse Reaction, Unknown, 07/09/17) hydralazine (Unverified Adverse Reaction, Unknown, 07/09/17) hydroxyzine (Unverified Adverse Reaction, Unknown, 07/09/17) lorazepam (Unverified Adverse Reaction, Unknown, 07/09/17) metoprolol (Unverified Adverse Reaction, Unknown, 07/09/17) nebivolol (Unverified Adverse Reaction, Unknown, 07/09/17) prednisone (Unverified Adverse Reaction, Unknown, 07/09/17) spironolactone (Unverified Adverse Reaction, Unknown, 07/09/17) warfarin (Unverified Adverse Reaction, Unknown, 07/09/17) Uncoded Allergies: BLOOD PRESSURE MEDS (Allergy, Severe, UNKNOWN, 03/19/11) SELDENE (Allergy, Severe, HIVES, 03/19/11) STEROID EYE DROPS (Allergy, Severe, ITCHING, BP ELEVATED, 10/04/16) Past Medical History End-stage renal disease currently on peritoneal dialysis since November 2015 Hypertension Diabetes mellitus COPD Hyperlipidemia Past Surgical History PD catheter Reported Medications Crestor (Rosuvastatin Calcium) 10 Mg Tab 10 Mg PO DAILY Renal Vitamin (B-Complex W/ C & Folic Acid) 1 Cap 1 Cap PO DAILY If on dialysis, take after treatment. [place] 3 500 500 mg ([place]-3 Fatty Acids) 1 Cap Cap 1 Cap PO DAILY Vitamin D-3 (Cholecalciferol) 1,000 Unit Cap 1 Cap PO MWF Doxazosin (Doxazosin Mesylate) 2 Mg Tab 2 Mg PO BID [place] (Candesartan Cilexetil) 32 Mg Tab 32 Mg PO DAILY Aspirin 325 Mg Tab 325 Mg PO DAILY Catapres (Clonidine) 0.3 Mg Tab 0.3 Mg PO Q8HR Lantus Inj (Insulin Glargine) 1,000 Unit/10 Ml Vial 16-23 Units SQ HS Lasix (Furosemide) 40 Mg Tab 80 Mg PO BID Vitamin B-12 (Cyanocobalamin) 1,000 Mcg Tab 1,000 Mcg PO DAILY Calcium Acetate (Phosphate Binder) 667 Mg Cap 667 Mg PO TID Nifedipine ER 24 HR (Nifedipine) 60 Mg Tab 60 Mg PO BID Active Ordered Medications Current Medications Medications (Trade) Dose Ordered Sig/Mendel Route Start Time Stop Time Status Last Admin (NS Flush) 2 ml UNSCH PRN IV FLUSH 11/11/17 21:15 (NS Flush) 2 ml BID IV FLUSH 11/12/17 09:00 (Narcan Inj) 0.4 mg UNSCH PRN IV PUSH 11/11/17 21:15 (D50w (Vial) Inj) 50 ml UNSCH PRN IV PUSH 11/11/17 21:30 (Glucagon Inj) 1 mg UNSCH PRN OTHER 11/11/17 21:30 (NovoLOG SUPPLEMENTAL SCALE) 1 ACHS SLIDING SCALE SQ 11/12/17 08:00 (Heparin Inj) 1,000 units WITH DIALYSIS PRN XX 11/11/17 21:15 (Levemir Inj) 8 units Q12HR SQ 11/12/17 00:15 11/12/17 00:28 (Heparin Inj) 1,000 units WITH DIALYSIS PRN XX 11/12/17 10:30 UNV (NS Flush) 10 ml UNSCH PRN IV FLUSH 11/12/17 10:30 UNV (Protonix Inj) 40 mg Q12H IV PUSH 11/12/17 11:15 UNV Family History Hx HTN and DM II Social History Non smoker She is , lives locally Retired Full code (Noemy Xie) Physical Exam Vital Signs Vital Signs Date Time Temp Pulse Resp B/P (MAP) Pulse Ox O2 Delivery O2 Flow Rate FiO2 11/12/17 07:41 97.7 75 20 183/77 (112) 93 11/12/17 04:37 98.8 68 18 131/68 (89) 98 11/12/17 00:00 98.0 74 18 158/84 (108) 97 11/11/17 22:27 11/11/17 17:06 75 14 159/71 (100) 96 11/11/17 17:06 75 14 95 Room Air 11/11/17 15:09 97.7 76 12 115/56 (75) 95 Physical Exam GENERAL: Well-nourished, well-developed patient. Obese, SKIN: Warm and dry. HEAD: Normocephalic. EYES: No scleral icterus. No injection or drainage. NECK: Supple, trachea midline. No JVD or lymphadenopathy. CARDIOVASCULAR: Regular rate and rhythm without murmurs, gallops, or rubs. RESPIRATORY: Breath sounds equal bilaterally. No accessory muscle use. GASTROINTESTINAL: Abdomen soft, non-tender, nondistended. PD catheter in place EXTREMITIES: No cyanosis, mild edema. NEUROLOGICAL: Awake, alert, and oriented x 3. Non-focal. Laboratory Laboratory Tests Test 11/11/17 16:20 11/12/17 00:42 11/12/17 05:00 White Blood Count 9.9 Red Blood Count 4.17 Hemoglobin 11.9 10.9 Hematocrit 37.6 35.2 Mean Corpuscular Volume 90.2 Mean Corpuscular Hemoglobin 28.5 Mean Corpuscular Hemoglobin Concent 31.6 Red Cell Distribution Width 17.6 Platelet Count 294 Mean Platelet Volume 9.9 Neutrophils (%) (Auto) 71.5 Lymphocytes (%) (Auto) 14.4 Monocytes (%) (Auto) 9.8 Eosinophils (%) (Auto) 3.3 Basophils (%) (Auto) 1.0 Neutrophils # (Auto) 7.1 Lymphocytes # (Auto) 1.4 Monocytes # (Auto) 1.0 Eosinophils # (Auto) 0.3 Basophils # (Auto) 0.1 CBC Comment DIFF FINAL Differential Comment Prothrombin Time 10.5 Prothromb Time International Ratio 1.0 Activated Partial Thromboplast Time 23.6 Blood Urea Nitrogen 55 Creatinine 12.97 Random Glucose 233 Total Protein 7.4 Albumin 3.4 Calcium Level 7.9 Magnesium Level 3.5 Alkaline Phosphatase 116 Aspartate Amino Transf (AST/SGOT) 14 Alanine Aminotransferase (ALT/SGPT) 16 Total Bilirubin 0.4 Sodium Level 132 Potassium Level 4.9 Chloride Level 93 Carbon Dioxide Level 22.4 Anion Gap 17 Estimat Glomerular Filtration Rate 3 Total Creatine Kinase 125 119 Creatine Kinase MB 4.5 Troponin I 0.11 0.11 Urine Color YELLOW Urine Turbidity HAZY Urine pH 6.5 Urine Specific [place] 1.013 Urine Protein 300 Urine Glucose (UA) 300 Urine Ketones NEG Urine Occult Blood SMALL Urine Nitrite NEG Urine Bilirubin NEG Urine Urobilinogen LESS THAN 2.0 Urine Leukocyte Esterase LARGE Urine RBC 8 Urine WBC 35 Urine Squamous Epithelial Cells 6 Urine Transitional Epithelial Cells <1 Urine Renal Epithelial Cells 1 Urine Bacteria FEW Urine Mucus FEW Microscopic Urinalysis Comment CULTURE INDICATED Date/Time Source Procedure Growth Status 11/12/17 05:00 Urine Clean Catch Urine Culture Pending Received (Noemy Xie) Result Diagram: 11/12/17 0042 11/11/17 1620 Imaging Last 72 hours Impressions Abdomen/Pelvis CT 11/11/17 0000 Signed Impressions: Service Date/Time: Saturday, November 11, 2017 19:10 - CONCLUSION: Negative noncontrast CT abdomen/pelvis. Lazaro Mendez MD (Noemy Xie) Assessment and Plan Problem List: (1) Chronic kidney disease (CKD), stage V ICD Codes: N18.5 - Chronic kidney disease, stage 5 Status: Acute Plan: She is maintained on nightly PD Her regimen consists of 1.5 and 2.5% dextrose solution. 2900 ml fill volume, 4 cycles, 11 hrs, no last fill Avoid IVF, tolerating oral fluids Continue present medications Check phosphorus level in AM (2) Nausea and vomiting ICD Codes: R11.2 - Nausea with vomiting, unspecified Plan: CT negative, etiology uncertain Hospitalist to manage (3) Anemia ICD Codes: D64.9 - Anemia Status: Acute Plan: Hb stable, epogen not required Due for EGD tomorrow (4) Diabetes mellitus ICD Codes: E11.9 - Diabetes mellitus Status: Acute Plan: Insulin as needed (Noemy Xie) Assessment and Plan patient was seen and examined. Patient has ESRD, on PD. We will restart PD from today. GI workup is in progress. She used to have extremely high BP before starting dialysis, but BP control has overall improved. She can be discharged from renal standpoint if cleared by GI. (Eliezer De León MD) Noemy Xie Nov 12, 2017 11:25 Eliezer De León MD Nov 12, 2017 19:35
[2017-11-12 12:11] LABS: AUTOMATED NEUTROPHIL # 6.7 TH/MM3 (1.8-7.7); BASOPHIL # 0.1 TH/MM3 (0-0.2); BASOPHIL % 0.8 % (0.0-2.0); EOSINOPHIL # 0.3 TH/MM3 (0-0.4); EOSINOPHIL % 3.2 % (0.0-4.0); HEMATOCRIT 38.1 % (35.0-46.0); HEMO FLAGS DIFF FINAL; LYMPH % 13.1 % (9.0-44.0); LYMPHOCYTE # 1.2 TH/MM3 (1.0-4.8); MEAN CELL VOLUME 90.3 FL (80.0-100.0); MEAN CORPUSCULAR HEMOGLOBIN 28.8 PG (27.0-34.0); MEAN CORPUSCULAR HGB CONC 31.9 % (32.0-36.0); MONO % 9.5 % (0.0-8.0); NEUT % 73.4 % (16.0-70.0); PLATELET COUNT 332 TH/MM3 (150-450); RED BLOOD COUNT 4.22 MIL/MM3 (4.00-5.30); WHITE BLOOD COUNT 9.2 TH/MM3 (4.0-11.0)
[2017-11-12] MEDS: PANTOPRAZOLE SODIUM 40 MG VIAL IV PUSH SCH (12:31)
[2017-11-12 12:33] LABS: ANION GAP 20 MEQ/L (5-15)
[2017-11-12 12:42] LABS: ALKALINE PHOSPHATASE 105 U/L (45-117); ALT (GPT) 13 U/L (10-53); AST (GOT) 10 U/L (15-37); BICARBONATE 19.9 MEQ/L (21.0-32.0); BLOOD UREA NITROGEN 68 MG/DL (7-18); CHLORIDE 93 MEQ/L (98-107); CREATINE KINASE 109 U/L (26-192); GLOMERULAR FILTRATION RATE 3 ML/MIN (>89); POTASSIUM 4.7 MEQ/L (3.5-5.1); SODIUM (NA) 133 MEQ/L (136-145); TOTAL BILIRUBIN ADULT 0.4 MG/DL (0.2-1.0)
--- NOTE | 2017-11-12 13:01 | EKG ---
Date Performed: 11/12/2017 Time Performed: 06:12:56 PTAGE: 72 years EKG: Sinus rhythm ST DEVIATION AND MODERATE T-WAVE ABNORMALITY, CONSIDER LATERAL ISCHEMIA ABNORMAL ECG PREVIOUS TRACING : 11/12/2017 02.28 Compared to prior tracing no significant change DOCTOR: Glenn Mora Interpretating Date/Time 11/12/2017 13:00:04
--- NOTE | 2017-11-12 13:01 | EKG ---
Date Performed: 11/11/2017 Time Performed: 17:08:23 PTAGE: 72 years EKG: Sinus rhythm SEPTAL MYOCARDIAL INFARCTION MODERATE T-WAVE ABNORMALITY, CONSIDER LATERAL ISCHEMIA ABNORMAL ECG PREVIOUS TRACING : 12/19/2015 07.57 Compared to prior tracing no significant change DOCTOR: Glenn Mora Interpretating Date/Time 11/12/2017 13:00:21
--- NOTE | 2017-11-12 13:14 | HHI.HP ---
[facility] Sylvester Allen DO Admission Diagnosis gi bleed, renal failure, elevated troponin Diagnoses: (1) Nausea and vomiting Diagnosis: Principal (2) GERD (gastroesophageal reflux disease) Diagnosis: Secondary (3) Anemia Diagnosis: Secondary (4) Diabetes mellitus Diagnosis: Principal (5) Constipation Diagnosis: Secondary (6) Chronic kidney disease (CKD), stage V Diagnosis: Principal Chief Complaint: Nausea and vomiting and rectal bleeding Travel History International Travel<30 Days: No Contact w/Intl Traveler <30 Da: No Traveled to Known Affected Are: No History of Present Illness Patient is a 72-year-old female. Who presented to the emergency department early last night came into the emergency department for a evaluation of persistent nausea, dizziness, and rectal bleeding. Patient has a history of being on peritoneal dialysis for about a year. Has been doing well with this. Has history of hypertension, history of hyperlipidemia, history of diabetes mellitus type 2. CAT scan of the abdomen was negative. Her hemoglobin is low normal. Did not have a peritoneal dialysis last night since she was here in the hospital. Nephrology has been consult. Patient has also been consult with gastroenterology we have ordered for her to have an EGD tomorrow Review of Systems Constitutional: COMPLAINS OF: Fatigue, Weight loss, Dizziness, DENIES: Diaphoretic episodes, Fever, Weight gain, Chills, Change in appetite, Night Sweats Endocrine: DENIES: Abnorml menstrual pattern, Heat/cold intolerance, Polydipsia Eyes: DENIES: Blurred vision, Diplopia, Eye inflammation, Eye pain Ears, nose, mouth, throat: DENIES: Tinnitus, Hearing loss, Vertigo, Nasal discharge, Oral lesions, Odynophagia Respiratory: DENIES: Apneas, Cough, Snoring, Wheezing, Hemoptysis Cardiovascular: DENIES: Chest pain, Palpitations, Syncope, Dyspnea on Exertion Gastrointestinal: COMPLAINS OF: Bloody stools, Nausea, Vomiting, DENIES: Abdominal pain Genitourinary: DENIES: Abnormal vaginal bleeding, Dysmenorrhea, Dyspareunia Musculoskeletal: DENIES: Joint pain, Muscle aches, Stiffness, Joint Swelling Integumentary: DENIES: Abnormal pigmentation, Pruritus, Rash, Nail changes Hematologic/lymphatic: DENIES: Bruising, Lymphadenopathy Immunologic/allergic: DENIES: Eczema, Urticaria Neurologic: DENIES: Abnormal gait, Headache, Localized weakness, Paresthesias Psychiatric: DENIES: Anxiety, Confusion, Mood changes, Depression, Hallucinations Except as stated in HPI: all other systems reviewed are Neg Past Family Social History Past Medical History Hypertension Diabetes mellitus COPD End-stage renal disease currently on peritoneal dialysis since November 2015 Hyperlipidemia Past Surgical History Peritoneal dialysis catheter Reported Medications Reported Meds & Active Scripts Active Reported Crestor (Rosuvastatin Calcium) 10 Mg Tab 10 Mg PO DAILY Renal Vitamin (B-Complex W/ C & Folic Acid) 1 Cap 1 Cap PO DAILY If on dialysis, take after treatment. Lewis 3 500 500 mg (Lewis-3 Fatty Acids) 1 Cap Cap 1 Cap PO DAILY Vitamin D-3 (Cholecalciferol) 1,000 Unit Cap 1 Cap PO MWF Doxazosin (Doxazosin Mesylate) 2 Mg Tab 2 Mg PO BID Atacand (Candesartan Cilexetil) 32 Mg Tab 32 Mg PO DAILY Aspirin 325 Mg Tab 325 Mg PO DAILY Catapres (Clonidine) 0.3 Mg Tab 0.3 Mg PO Q8HR Lantus Inj (Insulin Glargine) 1,000 Unit/10 Ml Vial 16-23 Units SQ HS Lasix (Furosemide) 40 Mg Tab 80 Mg PO BID Vitamin B-12 (Cyanocobalamin) 1,000 Mcg Tab 1,000 Mcg PO DAILY Calcium Acetate (Phosphate Binder) 667 Mg Cap 667 Mg PO TID Nifedipine ER 24 HR (Nifedipine) 60 Mg Tab 60 Mg PO BID Allergies: Coded Allergies: Iodinated Contrast- Oral and IV Dye (Unverified Allergy, Severe, Tachycardia, 07/09/17) cyclopentolate (Unverified Allergy, Severe, Shortness of Breath, 07/09/17) dexamethasone (Unverified Allergy, Severe, Shortness of Breath, 07/09/17) diatrizoate meglumine (Unverified Allergy, Severe, DYSPNEA, SWELLING, 07/09) gadobenic acid (Unverified Allergy, Severe, DYSPNEA, SWELLING, 07/09/17) gadodiamide (Unverified Allergy, Severe, DYSPNEA, SWELLING, 07/09/17) gadoteridol (Unverified Allergy, Severe, DYSPNEA, SWELLING, 07/09/17) iodixanol (Unverified Allergy, Severe, DYSPNEA, SWELLING, 07/09/17) iohexol (Unverified Allergy, Severe, DYSPNEA, SWELLING, 07/09/17) labetalol (Unverified Allergy, Severe, Itching, 07/09/17) HIVES ofloxacin (Unverified Allergy, Severe, Shortness of Breath, 07/09/17) tobramycin (Unverified Allergy, Severe, Shortness of Breath, 07/09/17) bevacizumab (Unverified Allergy, Unknown, 07/09/17) candesartan (Unverified Allergy, Unknown, 07/09/17) exenatide (Unverified Allergy, Unknown, 07/09/17) lisinopril (Unverified Allergy, Unknown, 07/09/17) methylprednisolone (Unverified Allergy, Unknown, 07/09/17) terfenadine (Unverified Allergy, Unknown, 07/09/17) diphenhydramine (Unverified Adverse Reaction, Unknown, 07/09/17) guanfacine (Unverified Adverse Reaction, Unknown, 07/09/17) hydralazine (Unverified Adverse Reaction, Unknown, 07/09/17) hydroxyzine (Unverified Adverse Reaction, Unknown, 07/09/17) lorazepam (Unverified Adverse Reaction, Unknown, 07/09/17) metoprolol (Unverified Adverse Reaction, Unknown, 07/09/17) nebivolol (Unverified Adverse Reaction, Unknown, 07/09/17) prednisone (Unverified Adverse Reaction, Unknown, 07/09/17) spironolactone (Unverified Adverse Reaction, Unknown, 07/09/17) warfarin (Unverified Adverse Reaction, Unknown, 07/09/17) Uncoded Allergies: BLOOD PRESSURE MEDS (Allergy, Severe, UNKNOWN, 03/19/11) SELDENE (Allergy, Severe, HIVES, 03/19/11) STEROID EYE DROPS (Allergy, Severe, ITCHING, BP ELEVATED, 10/04/16) Active Ordered Medications Current Medications Sodium Chloride (NS Flush) 2 ml UNSCH PRN IV FLUSH FLUSH AFTER USING IV ACCESS ; Start 11/11/17 at 21:15 Sodium Chloride (NS Flush) 2 ml BID IV FLUSH ; Start 11/12/17 at 09:00 Naloxone HCl (Narcan Inj) 0.4 mg UNSCH PRN IV PUSH SEE LABEL COMMENTS; Start 11/11/17 at 21:15 Dextrose (D50w (Vial) Inj) 50 ml UNSCH PRN IV PUSH HYPOGLYCEMIA-SEE COMMENTS; Start 11/11/17 at 21:30 Glucagon (Glucagon Inj) 1 mg UNSCH PRN OTHER HYPOGLYCEMIA-SEE COMMENTS; Start 11/11/17 at 21:30 Insulin Aspart (NovoLOG SUPPLEMENTAL SCALE) 1 ACHS SLIDING SCALE SQ ; Start at 08:00 Heparin Sodium (Porcine) (Heparin Inj) 1,000 units WITH DIALYSIS PRN XX SEE LABEL COMMENTS; Start 11/11/17 at 21:15 Sodium Chloride (NS Flush) 10 ml UNSCH PRN IV FLUSH SEE LABEL COMMENTS; Start 11/11/17 at 21:15; Stop 11/11/17 at 21:31; Status DC Insulin Detemir (Levemir Inj) 8 units Q12HR SQ Last administered on 11/12/17 00:28; Start 11/12/17 at 00:15 Heparin Sodium (Porcine) (Heparin Inj) 1,000 units WITH DIALYSIS PRN XX SEE LABEL COMMENTS; Start 11/12/17 at 10:30 Sodium Chloride (NS Flush) 10 ml UNSCH PRN IV FLUSH SEE LABEL COMMENTS; Start 11/12/17 at 10:30 Pantoprazole Sodium (Protonix Inj) 40 mg Q12H IV PUSH Last administered on t 12:31; Start 11/12/17 at 12:00 Family History Hypertension and diabetes mellitus type 2 Social History No alcohol tobacco or illicit drugs Physical Exam Vital Signs Vital Signs Date Time Temp Pulse Resp B/P (MAP) Pulse Ox O2 Delivery O2 Flow Rate FiO2 11/12/17 12:13 162/74 (103) 11/12/17 11:50 98.0 82 19 182/77 (112) 93 11/12/17 07:41 97.7 75 20 183/77 (112) 93 11/12/17 04:37 98.8 68 18 131/68 (89) 98 11/12/17 00:00 98.0 74 18 158/84 (108) 97 11/11/17 22:27 11/11/17 17:06 75 14 159/71 (100) 96 11/11/17 17:06 75 14 95 Room Air 11/11/17 15:09 97.7 76 12 115/56 (75) 95 Physical Exam GENERAL: This is a well-nourished, well-developed patient, in no apparent distress. SKIN: No rashes, ecchymoses or lesions. Cool and dry. HEAD: Atraumatic. Normocephalic. No temporal or scalp tenderness. EYES: Pupils equal round and reactive. Extraocular motions intact. No scleral icterus. No injection or drainage. ENT: Nose without bleeding, purulent drainage or septal hematoma. Throat without erythema, tonsillar hypertrophy or exudate. Uvula midline. Airway patent. NECK: Trachea midline. No JVD or lymphadenopathy. Supple, nontender, no meningeal signs. CARDIOVASCULAR: Regular rate and rhythm without murmurs, gallops, or rubs. RESPIRATORY: Clear to auscultation. Breath sounds equal bilaterally. No wheezes , rales, or rhonchi. GASTROINTESTINAL: Abdomen soft, non-tender, nondistended. No hepato-splenomegaly , or palpable masses. No guarding. Peritoneal dialysis catheter in place MUSCULOSKELETAL: Extremities without clubbing, cyanosis, or edema. No joint tenderness, effusion, or edema noted. No calf tenderness. Negative Homans sign bilaterally. NEUROLOGICAL: Awake and alert. Cranial nerves II through XII intact. Motor and sensory grossly within normal limits. Five out of 5 muscle strength in all muscle groups. Normal speech. Insight and judgment is good mood and behaviors appropriate Laboratory Laboratory Tests Test 11/11/17 16:20 11/12/17 00:42 11/12/17 05:00 11/12/17 11:10 White Blood Count 9.9 9.2 Red Blood Count 4.17 4.22 Hemoglobin 11.9 10.9 12.1 Hematocrit 37.6 35.2 38.1 Mean Corpuscular Volume 90.2 90.3 Mean Corpuscular Hemoglobin 28.5 28.8 Mean Corpuscular Hemoglobin Concent 31.6 31.9 Red Cell Distribution Width 17.6 18.0 Platelet Count 294 332 Mean Platelet Volume 9.9 9.9 Neutrophils (%) (Auto) 71.5 73.4 Lymphocytes (%) (Auto) 14.4 13.1 Monocytes (%) (Auto) 9.8 9.5 Eosinophils (%) (Auto) 3.3 3.2 Basophils (%) (Auto) 1.0 0.8 Neutrophils # (Auto) 7.1 6.7 Lymphocytes # (Auto) 1.4 1.2 Monocytes # (Auto) 1.0 0.9 Eosinophils # (Auto) 0.3 0.3 Basophils # (Auto) 0.1 0.1 CBC Comment DIFF FINAL DIFF FINAL Differential Comment Prothrombin Time 10.5 Prothromb Time International Ratio 1.0 Activated Partial Thromboplast Time 23.6 Blood Urea Nitrogen 55 68 Creatinine 12.97 13.79 Random Glucose 233 179 Total Protein 7.4 7.6 Albumin 3.4 3.2 Calcium Level 7.9 8.0 Magnesium Level 3.5 Alkaline Phosphatase 116 105 Aspartate Amino Transf (AST/SGOT) 14 10 Alanine Aminotransferase (ALT/SGPT) 16 13 Total Bilirubin 0.4 0.4 Sodium Level 132 133 Potassium Level 4.9 4.7 Chloride Level 93 93 Carbon Dioxide Level 22.4 19.9 Anion Gap 17 20 Estimat Glomerular Filtration Rate 3 3 Total Creatine Kinase 125 119 109 Creatine Kinase MB 4.5 Troponin I 0.11 0.11 0.14 Urine Color YELLOW Urine Turbidity HAZY Urine pH 6.5 Urine Specific Rowena 1.013 Urine Protein 300 Urine Glucose (UA) 300 Urine Ketones NEG Urine Occult Blood SMALL Urine Nitrite NEG Urine Bilirubin NEG Urine Urobilinogen LESS THAN 2.0 Urine Leukocyte Esterase LARGE Urine RBC 8 Urine WBC 35 Urine Squamous Epithelial Cells 6 Urine Transitional Epithelial Cells <1 Urine Renal Epithelial Cells 1 Urine Bacteria FEW Urine Mucus FEW Microscopic Urinalysis Comment CULTURE INDICATED Date/Time Source Procedure Growth Status 11/12/17 05:00 Urine Clean Catch Urine Culture Pending Received Result Diagram: 11/12/17 1110 11/12/17 1110 Imaging Last Impressions Abdomen/Pelvis CT 11/11/17 0000 Signed Impressions: Service Date/Time: Saturday, November 11, 2017 19:10 - CONCLUSION: Negative noncontrast CT abdomen/pelvis. MD Harvey Banerjee VTE Risk Assessment Oliviai VTE Risk Assessment: Mod/High Risk (score >= 2) Caprini Risk Assessment Model Point Value = 1 Point Value = 2 Point Value = 3 Point Value = 5 Age 41-60 Minor surgery BMI > 25 kg/m2 Swollen legs Varicose veins or History of unexplained or recurrent spontaneous Oral contraceptives or hormone replacement Sepsis (< 1 month) Serious lung disease, including pneumonia (< 1 month) Abnormal pulmonary function Acute myocardial infarction Congestive heart failure (< 1 month) History of inflammatory bowel disease Medical patient at bed rest Age 61-74 Arthroscopic surgery Major open surgery (> 45 min) Laparoscopic surgery (> 45 min) Malignancy Confined to bed (> 72 hours) Immobilizing plaster cast Central venous access Age >= 75 History of VTE Family history of VTE Factor V Leiden Prothrombin [id number] Lupus anticoagulant Anticardiolipin antibodies Elevated serum homocysteine Heparin-induced thrombocytopenia Other congenital or acquired thrombophilia Stroke (< 1 month) Elective arthroplasty Hip, pelvis, or leg fracture Acute spinal cord injury (< 1 month) Prophylaxis Regimen Total Risk Factor Score Risk Level Prophylaxis Regimen 0-1 Low Early ambulation 2 Moderate Order ONE of the following: *Sequential Compression Device (SCD) *Heparin 5000 units SQ BID 3-4 Higher Order ONE of the following medications: *Heparin 5000 units SQ TID *Enoxaparin/Lovenox 40 mg SQ daily (WT < 150 kg, CrCl > 30 mL/min) *Enoxaparin/Lovenox 30 mg SQ daily (WT < 150 kg, CrCl > 10-29 mL/min) *Enoxaparin/Lovenox 30 mg SQ BID (WT < 150 kg, CrCl > 30 mL/min) AND/OR *Sequential Compression Device (SCD) 5 or more Highest Order ONE of the following medications: *Heparin 5000 units SQ TID (Preferred with Epidurals) *Enoxaparin/Lovenox 40 mg SQ daily (WT < 150 kg, CrCl > 30 mL/min) *Enoxaparin/Lovenox 30 mg SQ daily (WT < 150 kg, CrCl > 10-29 mL/min) *Enoxaparin/Lovenox 30 mg SQ BID (WT < 150 kg, CrCl > 30 mL/min) AND *Sequential Compression Device (SCD) Assessment and Plan Assessment and Plan Nausea and vomiting and abdominal pain. AND rectal bleeding Antiemetics Consult gastroenterology To undergo EGD tomorrow with gastroenterology Nausea vomiting chronic issues Anemia to undergo EGD tomorrow Diabetes mellitus insulin as needed sliding scale coverage diabetic renal diet Accu-Cheks before meals and at bedtime Chronic kidney disease stage V on nightly peritoneal dialysis DVT and GI prophylaxis A.m. labs Code Status Full code Discussed Condition With Patient, RN, family, and GI Physician Certification 2 Midnight Certification Type: Admission for Inpatient Services Order for Inpatient Services The services are ordered in accordance with Medicare regulations or non- Medicare payer requirements, as applicable. In the case of services not specified as inpatient-only, they are appropriately provided as inpatient services in accordance with the 2-midnight benchmark. Estimated LOS (days): 2 2 days is the estimated time the patient will need to remain in the hospital, assuming treatment plan goals are met and no additional complications. Post-Hospital Plan: Home Fitz White DO Nov 12, 2017 13:14
[2017-11-12] MEDS ORDERED: LACTULOSE SYRUP 20 GM/30 ML CUP PO PRN (13:15)
[2017-11-12] MEDS ORDERED: METOCLOPRAMIDE HCL 10 MG/2 ML VIAL IV PUSH PRN (13:15)
[2017-11-12] MEDS ORDERED: ACETAMINOPHEN 325 MG TAB PO PRN ×2 (13:15)
[2017-11-12] MEDS ORDERED: ONDANSETRON HCL 4 MG/2 ML VIAL IVP PRN (13:15)
[2017-11-12] MEDS ORDERED: ACETAMINOPHEN/HYDROcodone 325 MG/5 MG TAB PO PRN (13:15)
[2017-11-12] MEDS ORDERED: BISACODYL 10 MG SUPP RECTAL PRN (13:15)
[2017-11-12] MEDS ORDERED: NALOXONE HCL 0.4 MG/ML AMP IV PUSH PRN (13:15)
[2017-11-12] MEDS ORDERED: ACETAMINOPHEN/HYDROcodone 325 MG/10 MG TAB PO PRN (13:15)
[2017-11-12] MEDS ORDERED: MORPHINE SULFATE 4 MG/ML INJ IV PUSH PRN ×2 (13:15)
[2017-11-12] MEDS ORDERED: SENNOSIDES 8.6 MG TAB PO PRN (13:15)
[2017-11-12] MEDS ORDERED: MAGNESIUM HYDROXIDE SUSP 30 ML CUP PO PRN (13:15)
--- NOTE | 2017-11-12 14:22 | EKG ---
Date Performed: 11/12/2017 Time Performed: 02:28:11 PTAGE: 72 years EKG: Sinus rhythm SEPTAL MYOCARDIAL INFARCTION POSSIBLE INFERIOR MYOCARDIAL INFARCTION MODERATE T-WAVE ABNORMALITY, CO NSIDER LATERAL ISCHEMIA ABNORMAL ECG Compared to PREVIOUS TRACING , T-wave inversion in the lateral leads is new, clinical correlation is recommended. PREVIOUS TRACIN11/11/2017 17.08 DOCTOR: Glenn Mora Interpretating Date/Time 11/12/2017 14:21:34
[2017-11-12 17:11] LABS: HEMATOCRIT 35.7 % (35.0-46.0); REVIEW FLAG FINAL
[2017-11-12] MEDS ORDERED: LACTATED RINGER'S 1000 ML IV PRN (19:00)
[2017-11-12] MEDS ORDERED: SODIUM CHLORID 0.9% 500 ML IV PRN (19:00)
[2017-11-12 20:13] LABS: HEMATOCRIT 35.7 % (35.0-46.0); REVIEW FLAG FINAL
[2017-11-12] MEDS: SODIUM CHLORIDE 0.9% FLUSH 10 ML FLUSH IV FLUSH SCH (21:00)
[2017-11-12] MEDS: DOCUSATE SODIUM 50 MG/SENNA 8.6 MG TAB PO SCH (21:49)
[2017-11-12] MEDS: cloNIDine HCL 0.3 MG TAB PO SCH (23:51)
[2017-11-12] MEDS: NIFEdipine 60 MG SUSTAINED RELEASE TAB PO SCH (23:51)
[2017-11-12] MEDS: FUROSEMIDE 80 MG TAB PO SCH (23:51)
[2017-11-12] MEDS: DOXAZOSIN MESYLATE 2 MG TAB PO SCH (23:51)
[2017-11-13 00:20] VITALS: PULSE 59
[2017-11-13] MEDS: PANTOPRAZOLE SODIUM 40 MG VIAL IV PUSH SCH ×2 (01:15→16:59)
[2017-11-13 03:59] VITALS: BP 150/68; PULSE 72; RESP 18; TEMP 97.9; O2SAT 95
[2017-11-13 04:30] VITALS: PULSE 61
[2017-11-13] MEDS: cloNIDine HCL 0.3 MG TAB PO SCH ×2 (05:36→16:59)
[2017-11-13 07:42] VITALS: BP 170/71; PULSE 54; RESP 21; TEMP 97.6; O2SAT 93
[2017-11-13] MEDS: INSULIN ASPART SUPPLEMENTAL SCALE SQ SCH ×2 (08:00→12:00)
[2017-11-13] MEDS ORDERED: ATORVASTATIN 20 MG TAB PO SCH (09:00)
[2017-11-13] MEDS: INSULIN DETEMIR 100 UNITS/ML VIAL SQ SCH (09:00)
[2017-11-13] MEDS ORDERED: CALCIUM ACETATE 667 MG CAP PO SCH ×2 (09:00→18:00)
[2017-11-13] MEDS ORDERED: LOSARTAN 50 MG TAB PO SCH (09:00)
[2017-11-13] MEDS ORDERED: DEXTROSE 10% INJ 1,000 ML IV SCH (09:30)
[2017-11-13] MEDS: DOCUSATE SODIUM 50 MG/SENNA 8.6 MG TAB PO SCH (10:18)
[2017-11-13] MEDS: NIFEdipine 60 MG SUSTAINED RELEASE TAB PO SCH (10:19)
[2017-11-13] MEDS: FUROSEMIDE 80 MG TAB PO SCH (10:20)
[2017-11-13] MEDS: SODIUM CHLORIDE 0.9% FLUSH 10 ML FLUSH IV FLUSH SCH (10:21)
[2017-11-13] MEDS: DOXAZOSIN MESYLATE 2 MG TAB PO SCH (10:21)
[2017-11-13 11:06] LABS: AUTOMATED NEUTROPHIL # 4.6 TH/MM3 (1.8-7.7); BASOPHIL # 0.1 TH/MM3 (0-0.2); BASOPHIL % 1.3 % (0.0-2.0); EOSINOPHIL # 0.3 TH/MM3 (0-0.4); EOSINOPHIL % 4.6 % (0.0-4.0); HEMATOCRIT 35.6 % (35.0-46.0); HEMO FLAGS DIFF FINAL; LYMPH % 15.3 % (9.0-44.0); MEAN CELL VOLUME 90.4 FL (80.0-100.0); MEAN CORPUSCULAR HEMOGLOBIN 28.2 PG (27.0-34.0); MEAN CORPUSCULAR HGB CONC 31.2 % (32.0-36.0); MONO % 12.2 % (0.0-8.0); NEUT % 66.6 % (16.0-70.0); PLATELET COUNT 310 TH/MM3 (150-450); RED BLOOD COUNT 3.94 MIL/MM3 (4.00-5.30); RED CELL DISTRIBUTION WIDTH 17.7 % (11.6-17.2); WHITE BLOOD COUNT 6.8 TH/MM3 (4.0-11.0)
[2017-11-13 11:30] LABS: ANION GAP 18 MEQ/L (5-15); AST (GOT) 12 U/L (15-37); BICARBONATE 22.2 MEQ/L (21.0-32.0); BLOOD UREA NITROGEN 67 MG/DL (7-18); CHLORIDE 96 MEQ/L (98-107); GLOMERULAR FILTRATION RATE 3 ML/MIN (>89); MAGNESIUM 3.5 MG/DL (1.5-2.5); POTASSIUM 4.6 MEQ/L (3.5-5.1); SODIUM (NA) 136 MEQ/L (136-145)
[2017-11-13 11:34] LABS: HEMOGLOBIN A1a 2.3 %; HEMOGLOBIN A1b 0.9 %; HEMOGLOBIN Ao 79.7 %; HEMOGLOBIN LA1C 2.5 %; HEMOGLOBIN P3 5.1 %
[2017-11-13 11:38] LABS: ALKALINE PHOSPHATASE 97 U/L (45-117); ALT (GPT) 11 U/L (10-53); FREE T4 0.97 NG/DL (0.76-1.46); TOTAL BILIRUBIN ADULT 0.4 MG/DL (0.2-1.0)
[2017-11-13] MEDS ORDERED: PROPOFOL 200 MG/20 ML AMP IV ONE (12:00)
--- NOTE | 2017-11-13 12:05 | GIPROC ---
[facility] [address] [facility]. [facility], [address] EGD PROCEDURE REPORT EXAM DATE: 11/13/2017 PATIENT NAME: Belle Slater MR #: [id number] BIRTHDATE: 1945 ATTENDING: Oscar Butler MD ORDER #: [id number] CAMERA PROTOTYPING ENGINEER: Lupe Betancourt and Leeann Hillman STATUS: inpatient INDICATIONS: The patient is a 72 yr old female here for an EGD due to nausea PROCEDURE PERFORMED: EGD w/ biopsy MEDICATIONS: None and Per Anesthesia. TOPICAL ANESTHETIC: none CONSENT: The patient understands the risks and benefits of the procedure and understands that these risks include, but are not limited to: sedation, allergic reaction, infection, perforation and/or bleeding. Alternative means of evaluation and treatment include, among others: physical exam, x-rays, and/or surgical intervention. The patient elects to proceed with this endoscopic procedure. medical equipment was checked for proper function. Hand hygiene and appropriate measures for infection prevention was taken. After the risks, benefits and alternatives of the procedure were thoroughly explained, Informed consent was verified, confirmed and timeout was successfully executed by the treatment team. The patient was anesthetized with topical anesthesia and the Pentax EG-[id number] endoscope was introduced through the mouth and advanced to the second portion of the duodenum. Retroflexion was performed and was normal The gastroscope was then slowly withdrawn and removed. ESOPHAGUS: The esophagus was otherwise normal. STOMACH: There was mild gastritis in the gastric antrum. Multiple biopsies were performed using cold forceps. Sample sent for histology. DUODENUM: The duodenal mucosa appeared normal in the bulb and second portion of the duodenum. ADVERSE EVENTS: There were no complications. IMPRESSIONS: 1. The esophagus was otherwise normal 2. There was mild gastritis in the gastric antrum; multiple biopsies were performed 3. Normal duodenal mucosa in the bulb and second portion of the duodenum 4. Retroflexion was performed and was normal RECOMMENDATIONS: 1. Await biopsy results. Biopsy results will not be ready for 7-10 days. If you don't hear from us in two weeks, call our office for biopsy results. 2. Continue PPI PATIENT CONDITION: stable DISPOSITION: Observation REPEAT EXAM: NONE Oscar Butler MD eSigned: Oscar Butler MD 11/13/2017 12:05 PM cc: PATIENT NAME: Belle Slater MR#: [id number]
--- NOTE | 2017-11-13 14:11 | HHI.NPPN ---
Subjective Renal Failure: Chronic, End Stage Renal Disease Interval History NPO for EGD today. Had PD last night. Hemoglobin stable, no BM overnight. (Noemy Xie) Objective Data Data 11/13/17 11/14/17 19:00 07:00 Intake Total 75 ml Output Total 1321 ml Balance -1246 ml Other 75 ml Output Peritoneal Fluid 1321 ml Vital Signs Date Time Temp Pulse Resp B/P (MAP) Pulse Ox O2 Delivery O2 Flow Rate FiO2 11/13/17 12:12 96.9 54 18 96/45 (62) 98 11/13/17 07:42 97.6 54 21 170/71 (104) 93 11/13/17 04:30 61 11/13/17 03:59 97.9 72 18 150/68 (95) 95 11/13/17 02:14 15 11/13/17 00:20 59 11/12/17 23:45 97.9 68 18 138/62 (87) 93 11/12/17 20:30 59 11/12/17 20:04 97.8 73 18 189/75 (113) 95 11/12/17 15:44 170/82 (111) 11/12/17 15:35 97.8 82 18 93 (Noemy Xie) -: 11/13/17 1024 11/13/17 1024 Imaging Last 72 hours Impressions Abdomen/Pelvis CT 11/11/17 0000 Signed Impressions: Service Date/Time: Saturday, November 11, 2017 19:10 - CONCLUSION: Negative noncontrast CT abdomen/pelvis. Lazaro Mendez MD Tubes & Lines: Tenckhoff Catheter (Noemy Xie) Physical Exam General Appearance: Well Developed, No Acute Distress, Comfortable, Obese (Noemy Xie) Throat Throat Exam: Oral Mucosa [place] & Moist (Noemy Xie) Neck Neck Exam: Neck Supple (Noemy Xie) Pulmonary Resp Exam: Clear Bilaterally, Breath Sounds Equal, No Distress (Noemy Xie) Cardiology CV Exam: Regular, Normal Sinus Rhythm, Good Perfusion (Noemy Xie) Gastrointestinal/Abdomen GI Exam: Soft, Non-Tender, Bowel Sounds Present (Noemy Xie) Musculoskeletal MS Exam: Joints Intact, Normal Gait, Normal Tone, Good Strength (Noemy Xie) Integumentary Skin Exam: Clear, Warm, Dry, Intact (Noemy Xie) Extremeties Extremities Exam: No Edema, Pedal Pulses Palpable (Noemy Xie) Neurologic Neuro Exam: Alert, Awake, Oriented, Speech Clear, Moving All Extremities (Noemy Xie) Psychiatric Psych Exam: Appropriate Responses (Noemy Xie) Assessment/Plan Discussed Condition With: Patient, Spouse, Daughter Assessment Summary: Anemia of CKD, Hypertension, Diabetes Mellitus, End Stage Renal Disease Problem List: (1) Chronic kidney disease (CKD), stage V ICD Codes: N18.5 - Chronic kidney disease, stage 5 Status: Acute Plan: Continue nightly PD. Her regimen consists of 1.5 and 2.5% dextrose solution. 2900 ml fill volume, 4 cycles, 11 hrs, no last fill Has excellent UF On D10 while NPO, otherwise she is tolerating oral fluids Continue present medications Increase Calcium acetate while hospitalized Stable for discharge from renal perspective if cleared by GI (2) Nausea and vomiting ICD Codes: R11.2 - Nausea with vomiting, unspecified Plan: Improved, monitor (3) Anemia ICD Codes: D64.9 - Anemia Status: Acute Plan: Hb stable, Epogen not required EGD planned for today to evaluate fo possible bleeding (4) Diabetes mellitus ICD Codes: E11.9 - Diabetes mellitus Status: Acute Plan: Insulin as needed (Noemy Xie) Plan patient was seen and examined. Agree with above assessment and plan. She can be discharged from renal standpoint. (Eliezer De León MD) Noemy Xie Nov 13, 2017 14:11 Eliezer De León MD Nov 13, 2017 19:02
[2017-11-13 15:32] VITALS: BP 130/60; PULSE 78; RESP 18; TEMP 96; O2SAT 90
--- NOTE | 2017-11-13 17:32 | HHI.PR ---
Subjective Remarks Patient is a 72-year-old female. Who presented to the emergency department early last night came into the emergency department for a evaluation of persistent nausea, dizziness, and rectal bleeding. Patient has a history of being on peritoneal dialysis for about a year. Has been doing well with this. Has history of hypertension, history of hyperlipidemia, history of diabetes mellitus type 2. CAT scan of the abdomen was negative. Her hemoglobin is low normal. Did not have a peritoneal dialysis last night since she was here in the hospital. Nephrology has been consult. Patient has also been consult with gastroenterology we have ordered for her to have an EGD tomorrow 11-13 patient had EGD with GI showed gastritis Tolerating her peritoneal dialysis without issues Wants to go home today We'll make sure she is on a PPI and can be discharged home later today Discussed with patient and RN wants to go home discussed with family also Objective Vitals Vital Signs Date Time Temp Pulse Resp B/P (MAP) Pulse Ox O2 Delivery O2 Flow Rate FiO2 11/13/17 15:32 96.0 78 18 130/60 (83) 90 Automatic Cuff 11/13/17 12:12 96.9 54 18 96/45 (62) 98 11/13/17 07:42 97.6 54 21 170/71 (104) 93 11/13/17 04:30 61 11/13/17 03:59 97.9 72 18 150/68 (95) 95 11/13/17 02:14 15 11/13/17 00:20 59 11/12/17 23:45 97.9 68 18 138/62 (87) 93 11/12/17 20:30 59 11/12/17 20:04 97.8 73 18 189/75 (113) 95 I/O 11/12/17 11/12/17 11/12/17 11/13/17 11/13/17 11/13/17 07:00 15:00 23:00 07:00 15:00 23:00 Intake Total 200 ml 300 ml 75 ml Output Total 1321 ml Balance 200 ml 300 ml -1246 ml Intake Oral 200 ml 300 ml Other 75 ml Output Peritoneal Fluid 1321 ml Result Diagram: 11/13/17 1024 11/13/17 1024 Other Results Laboratory Tests Test 11/11/17 16:20 11/12/17 00:42 11/12/17 05:00 11/12/17 11:10 White Blood Count 9.9 TH/MM3 9.2 TH/MM3 Red Blood Count 4.17 MIL/MM3 4.22 MIL/MM3 Hemoglobin 11.9 GM/DL 10.9 GM/DL 12.1 GM/DL Hematocrit 37.6 % 35.2 % 38.1 % Mean Corpuscular Volume 90.2 FL 90.3 FL Mean Corpuscular Hemoglobin 28.5 PG 28.8 PG Mean Corpuscular Hemoglobin Concent 31.6 % 31.9 % Red Cell Distribution Width 17.6 % 18.0 % Platelet Count 294 TH/MM3 332 TH/MM3 Mean Platelet Volume 9.9 FL 9.9 FL Neutrophils (%) (Auto) 71.5 % 73.4 % Lymphocytes (%) (Auto) 14.4 % 13.1 % Monocytes (%) (Auto) 9.8 % 9.5 % Eosinophils (%) (Auto) 3.3 % 3.2 % Basophils (%) (Auto) 1.0 % 0.8 % Neutrophils # (Auto) 7.1 TH/MM3 6.7 TH/MM3 Lymphocytes # (Auto) 1.4 TH/MM3 1.2 TH/MM3 Monocytes # (Auto) 1.0 TH/MM3 0.9 TH/MM3 Eosinophils # (Auto) 0.3 TH/MM3 0.3 TH/MM3 Basophils # (Auto) 0.1 TH/MM3 0.1 TH/MM3 CBC Comment DIFF FINAL DIFF FINAL Differential Comment Prothrombin Time 10.5 SEC Prothromb Time International Ratio 1.0 RATIO Activated Partial Thromboplast Time 23.6 SEC Blood Urea Nitrogen 55 MG/DL 68 MG/DL Creatinine 12.97 MG/DL 13.79 MG/DL Random Glucose 233 MG/DL 179 MG/DL Total Protein 7.4 GM/DL 7.6 GM/DL Albumin 3.4 GM/DL 3.2 GM/DL Calcium Level 7.9 MG/DL 8.0 MG/DL Magnesium Level 3.5 MG/DL Alkaline Phosphatase 116 U/L 105 U/L Aspartate Amino Transf (AST/SGOT) 14 U/L 10 U/L Alanine Aminotransferase (ALT/SGPT) 16 U/L 13 U/L Total Bilirubin 0.4 MG/DL 0.4 MG/DL Sodium Level 132 MEQ/L 133 MEQ/L Potassium Level 4.9 MEQ/L 4.7 MEQ/L Chloride Level 93 MEQ/L 93 MEQ/L Carbon Dioxide Level 22.4 MEQ/L 19.9 MEQ/L Anion Gap 17 MEQ/L 20 MEQ/L Estimat Glomerular Filtration Rate 3 ML/MIN 3 ML/MIN Total Creatine Kinase 125 U/L 119 U/L 109 U/L Creatine Kinase MB 4.5 NG/ML Troponin I 0.11 NG/ML 0.11 NG/ML 0.14 NG/ML Urine Color YELLOW Urine Turbidity HAZY Urine pH 6.5 Urine Specific [place] 1.013 Urine Protein 300 mg/dL Urine Glucose (UA) 300 mg/dL Urine Ketones NEG mg/dL Urine Occult Blood SMALL Urine Nitrite NEG Urine Bilirubin NEG Urine Urobilinogen LESS THAN 2.0 MG/DL Urine Leukocyte Esterase LARGE Urine RBC 8 /hpf Urine WBC 35 /hpf Urine Squamous Epithelial Cells 6 /hpf Urine Transitional Epithelial Cells <1 /hpf Urine Renal Epithelial Cells 1 /hpf Urine Bacteria FEW /hpf Urine Mucus FEW /lpf Microscopic Urinalysis Comment CULTURE INDICATED Test 11/12/17 16:25 11/12/17 19:58 11/13/17 10:24 Hemoglobin 11.1 GM/DL 11.2 GM/DL 11.1 GM/DL Hematocrit 35.7 % 35.7 % 35.6 % White Blood Count 6.8 TH/MM3 Red Blood Count 3.94 MIL/MM3 Mean Corpuscular Volume 90.4 FL Mean Corpuscular Hemoglobin 28.2 PG Mean Corpuscular Hemoglobin Concent 31.2 % Red Cell Distribution Width 17.7 % Platelet Count 310 TH/MM3 Mean Platelet Volume 9.5 FL Neutrophils (%) (Auto) 66.6 % Lymphocytes (%) (Auto) 15.3 % Monocytes (%) (Auto) 12.2 % Eosinophils (%) (Auto) 4.6 % Basophils (%) (Auto) 1.3 % Neutrophils # (Auto) 4.6 TH/MM3 Lymphocytes # (Auto) 1.0 TH/MM3 Monocytes # (Auto) 0.8 TH/MM3 Eosinophils # (Auto) 0.3 TH/MM3 Basophils # (Auto) 0.1 TH/MM3 CBC Comment DIFF FINAL Differential Comment Blood Urea Nitrogen 67 MG/DL Creatinine 13.53 MG/DL Random Glucose 90 MG/DL Total Protein 7.1 GM/DL Albumin 3.2 GM/DL Calcium Level 8.0 MG/DL Phosphorus Level 10.1 MG/DL Magnesium Level 3.5 MG/DL Alkaline Phosphatase 97 U/L Aspartate Amino Transf (AST/SGOT) 12 U/L Alanine Aminotransferase (ALT/SGPT) 11 U/L Total Bilirubin 0.4 MG/DL Sodium Level 136 MEQ/L Potassium Level 4.6 MEQ/L Chloride Level 96 MEQ/L Carbon Dioxide Level 22.2 MEQ/L Anion Gap 18 MEQ/L Estimat Glomerular Filtration Rate 3 ML/MIN Hemoglobin A1c 7.3 % Free Thyroxine 0.97 NG/DL Thyroid Stimulating Hormone 3rd Gen 0.675 uIU/ML Imaging Last Impressions Abdomen/Pelvis CT 11/11/17 0000 Signed Impressions: Service Date/Time: Saturday, November 11, 2017 19:10 - CONCLUSION: Negative noncontrast CT abdomen/pelvis. Lazaro Mendez MD Objective Remarks GENERAL: Awake alert and oriented talkative and cooperative wants to go home SKIN: Warm and dry. HEAD: Atraumatic. Normocephalic. EYES: Pupils equal and round. No scleral icterus. No injection or drainage. Extraocular muscles intact ENT: No nasal bleeding or discharge. Mucous membranes pink and moist. Tongue is midline NECK: Trachea midline. No JVD. Supple CARDIOVASCULAR: Regular rate and rhythm. S1 and S2 no S3 or S4 no heave or thrill or rub or gallop RESPIRATORY: No accessory muscle use. Clear to auscultation. Breath sounds equal bilaterally. GASTROINTESTINAL: Abdomen soft, non-tender, nondistended. Hepatic and splenic margins not palpable. Peritoneal dialysis catheter in place MUSCULOSKELETAL: Extremities without clubbing, cyanosis, or edema. No obvious deformities. NEUROLOGICAL: Awake and alert. No obvious cranial nerve deficits. Motor grossly within normal limits. Five out of 5 muscle strength in the arms and legs. Normal speech. PSYCHIATRIC: Appropriate mood and affect; insight and judgment normal. Procedures EGD PROCEDURE REPORT EXAM DATE: 11/13/2017 PATIENT NAME: Belle Slater MR #: [id number] BIRTHDATE: 1945 ATTENDING: Oscar Butler MD ORDER #: [id number] BRAND DESIGNER: Lei Betancourt Pat STATUS: inpatient INDICATIONS: The patient is a 72 yr old female here for an EGD due to nausea PROCEDURE PERFORMED: EGD w/ biopsy MEDICATIONS: None and Per Anesthesia. TOPICAL ANESTHETIC: none CONSENT: The patient understands the risks and benefits of the procedure and understands that these risks include, but are not limited to: sedation, allergic reaction, infection, perforation and/or bleeding. Alternative means of evaluation and treatment include, among others: physical exam, x-rays, and/or surgical intervention. The patient elects to proceed with this endoscopic procedure. medical equipment was checked for proper function. Hand hygiene and appropriate measures for infection prevention was taken. After the risks, benefits and alternatives of the procedure were thoroughly explained, Informed consent was verified, confirmed and timeout was successfully executed by the treatment team. The patient was anesthetized with topical anesthesia and the [employer] [id number] endoscope was introduced through the mouth and advanced to the second portion of the duodenum. Retroflexion was performed and was normal The gastroscope was then slowly withdrawn and removed. ESOPHAGUS: The esophagus was otherwise normal. STOMACH: There was mild gastritis in the gastric antrum. Multiple biopsies were performed using cold forceps. Sample sent for histology. DUODENUM: The duodenal mucosa appeared normal in the bulb and second portion of the duodenum. ADVERSE EVENTS: There were no complications. IMPRESSIONS: 1. The esophagus was otherwise normal 2. There was mild gastritis in the gastric antrum; multiple biopsies were performed 3. Normal duodenal mucosa in the bulb and second portion of the duodenum 4. Retroflexion was performed and was normal RECOMMENDATIONS: 1. Await biopsy results. Biopsy results will not be ready for 7-10 days. If you don't hear from us in two weeks, call our office for biopsy results. 2. Continue PPI PATIENT CONDITION: stable DISPOSITION: Observation REPEAT EXAM: NONE Medications and IVs Current Medications Sodium Chloride (NS Flush) 2 ml UNSCH PRN IV FLUSH FLUSH AFTER USING IV ACCESS ; Start 11/11/17 at 21:15; Stop 11/12/17 at 18:56; Status DC Sodium Chloride (NS Flush) 2 ml BID IV FLUSH ; Start 11/12/17 at 09:00; Stop 11/12/17 at 18:56; Status DC Naloxone HCl (Narcan Inj) 0.4 mg UNSCH PRN IV PUSH SEE LABEL COMMENTS; Start 11/11/17 at 21:15; Stop 11/12/17 at 18:56; Status DC Dextrose (D50w (Vial) Inj) 50 ml UNSCH PRN IV PUSH HYPOGLYCEMIA-SEE COMMENTS; Start 11/11/17 at 21:30 Glucagon (Glucagon Inj) 1 mg UNSCH PRN OTHER HYPOGLYCEMIA-SEE COMMENTS; Start 11/11/17 at 21:30 Insulin Aspart (NovoLOG SUPPLEMENTAL SCALE) 1 ACHS SLIDING SCALE SQ Last administered on 11/12/17 22:02; Start 11/12/17 at 08:00 Heparin Sodium (Porcine) (Heparin Inj) 1,000 units WITH DIALYSIS PRN XX SEE LABEL COMMENTS; Start 11/11/17 at 21:15 Sodium Chloride (NS Flush) 10 ml UNSCH PRN IV FLUSH SEE LABEL COMMENTS; Start 11/11/17 at 21:15; Stop 11/11/17 at 21:31; Status DC Insulin Detemir (Levemir Inj) 8 units Q12HR SQ Last administered on 11/12/17 22:02; Start 11/12/17 at 00:15 Heparin Sodium (Porcine) (Heparin Inj) 1,000 units WITH DIALYSIS PRN XX SEE LABEL COMMENTS; Start 11/12/17 at 10:30 Sodium Chloride (NS Flush) 10 ml UNSCH PRN IV FLUSH SEE LABEL COMMENTS; Start 11/12/17 at 10:30; Stop 11/12/17 at 18:56; Status DC Pantoprazole Sodium (Protonix Inj) 40 mg Q12H IV PUSH Last administered on 16:59; Start 11/12/17 at 12:00 Sodium Chloride (NS Flush) 2 ml UNSCH PRN IV FLUSH FLUSH AFTER USING IV ACCESS Last administered on 11/13/17 01:15; Start 11/12/17 at 13:15 Sodium Chloride (NS Flush) 2 ml BID IV FLUSH Last administered on 11/13/17 10 :21; Start 11/12/17 at 21:00 Acetaminophen (Tylenol) 650 mg Q4H PRN PO TEMP > 100.4; Start 11/12/17 at 13: 15 Ondansetron HCl (Zofran Inj) 4 mg Q6H PRN IVP NAUSEA OR VOMITING Last administered on 11/12/17 15:03; Start 11/12/17 at 13:15 Metoclopramide HCl (Reglan Inj) 5 mg Q6H PRN IV PUSH NAUSEA OR VOMITING; Start 11/12/17 at 13:15 Acetaminophen (Tylenol) 650 mg Q6H PRN PO PAIN SCALE 1 TO 2 Last administered on 11/13/17 01:14; Start 11/12/17 at 13:15 Acetaminophen/ Hydrocodone Bitart ([place] 5-325 Mg) 1 tab Q4H PRN PO PAIN SCALE 3 TO 5; Start 11/12/17 at 13:15 Acetaminophen/ Hydrocodone Bitart ([place] 10-325 Mg) 1 tab Q4H PRN PO PAIN SCALE 6 TO 10; Start 11/12/17 at 13:15 Morphine Sulfate (Morphine Inj) 2 mg Q3H PRN IV PUSH Pain 3-5; if unable to take PO; Start 11/12/17 at 13:15 Morphine Sulfate (Morphine Inj) 4 mg Q3H PRN IV PUSH Pain 6-10;if unable to take PO; Start 11/12/17 at 13:15 Naloxone HCl (Narcan Inj) 0.4 mg UNSCH PRN IV PUSH SEE LABEL COMMENTS; Start 11/12/17 at 13:15 Senna/Docusate Sodium (Melina-Colace) 1 tab BID PO Last administered on 10:18; Start 11/12/17 at 21:00 Magnesium Hydroxide (Milk Of Magnesia Liq) 30 ml Q12H PRN PO Mild constipation ; Start 11/12/17 at 13:15 Sennosides (Senokot) 17.2 mg Q12H PRN PO Moderate constipation; Start at 13:15 Bisacodyl (Dulcolax Supp) 10 mg DAILY PRN RECTAL SEVERE CONSITIPATION; Start 11/12/17 at 13:15 Lactulose (Lactulose Liq) 30 ml DAILY PRN PO SEVERE CONSITIPATION; Start 11/12 at 13:15 Lactated Ringer's 1,000 ml @ 30 mls/hr Q24H PRN IV SEE LABEL COMMENTS; Start 11/12/17 at 19:00; Stop 11/13/17 at 09:58; Status DC Sodium Chloride 500 ml @ 30 mls/hr [id number] PRN IV SEE LABEL COMMENTS Last administered on 11/13/17 11:36; Start 11/12/17 at 19:00; Stop 11/13/17 at 09 :58; Status DC Calcium Acetate (Phoslo) 667 mg TID PO ; Start 11/13/17 at 09:00; Stop at 14:12; Status DC Clonidine (Catapres) 0.3 mg Q8HR PO Last administered on 11/13/17 16:59; Start 11/12/17 at 22:45 Doxazosin Mesylate (Cardura) 2 mg BID PO Last administered on 11/13/17 10:21 ; Start 11/12/17 at 22:45 Furosemide (Lasix) 80 mg BID PO Last administered on 11/13/17 10:20; Start 11/12/17 at 23:20 Nifedipine (Procardia Xl) 60 mg BID PO Last administered on 11/13/17 10:19; Start 11/12/17 at 22:45 Losartan Potassium (Cozaar) 100 mg DAILY PO Last administered on 11/13/17 10: 18; Start 11/13/17 at 09:00 Atorvastatin Calcium (Lipitor) 20 mg DAILY PO Last administered on 11/13/17 10:19; Start 11/13/17 at 09:00 Dextrose 1,000 ml @ 15 mls/hr Q24H IV ; Start 11/13/17 at 09:30; Stop at 14:13; Status DC Calcium Acetate (Phoslo) 2,001 mg TID PO ; Start 11/13/17 at 18:00 Urinary Catheter: No A/P Problem List: (1) Nausea and vomiting ICD Code: R11.2 - Nausea with vomiting, unspecified (2) GERD (gastroesophageal reflux disease) ICD Code: K21.9 - Gastro-esophageal reflux disease without esophagitis (3) Anemia ICD Code: D64.9 - Anemia Status: Acute (4) Diabetes mellitus ICD Code: E11.9 - Diabetes mellitus Status: Acute (5) Constipation ICD Code: K59.00 - Constipation, unspecified Status: Acute (6) Chronic kidney disease (CKD), stage V ICD Code: N18.5 - Chronic kidney disease, stage 5 Status: Acute Assessment and Plan Nausea and vomiting and abdominal pain. AND rectal bleeding Antiemetics Consult gastroenterology Had EGD today with gastroenterology showed gastritis will discharge on PPI Nausea vomiting chronic issues improved Anemia to undergo EGD tomorrow--had EGD which showed gastritis discharge on PPI Diabetes mellitus insulin as needed sliding scale coverage diabetic renal diet Accu-Cheks before meals and at bedtime Chronic kidney disease stage V on nightly peritoneal dialysis DVT and GI prophylaxis Will discharge to home today on PPI Discharge Planning Cleared by nephrology and GI for discharge Fitz White DO Nov 13, 2017 17:32
[2017-11-13] MEDS ORDERED: PROT40TA PO (17:36)
--- NOTE | 2017-11-13 17:39 | HHI.DS ---
Discharge Summary Admission Date Nov 11, 2017 at 21:18 Discharge Date: Nov 13, 2017 Admitting Diagnosis gi bleed, renal failure, elevated troponin (1) Nausea and vomiting ICD Code: R11.2 - Nausea with vomiting, unspecified Diagnosis: Principal (2) GERD (gastroesophageal reflux disease) ICD Code: K21.9 - Gastro-esophageal reflux disease without esophagitis Diagnosis: Principal (3) Anemia ICD Code: D64.9 - Anemia Diagnosis: Secondary Status: Acute (4) Diabetes mellitus ICD Code: E11.9 - Diabetes mellitus Diagnosis: Principal Status: Acute (5) Constipation ICD Code: K59.00 - Constipation, unspecified Diagnosis: Secondary Status: Acute (6) Chronic kidney disease (CKD), stage V ICD Code: N18.5 - Chronic kidney disease, stage 5 Diagnosis: Principal Status: Acute Procedures EGD PROCEDURE REPORT EXAM DATE: 11/13/2017 PATIENT NAME: Belle Slater MR #: [id number] BIRTHDATE: 1945 ATTENDING: Ocsar Butler MD ORDER #: [id number] FI[employer] TECHNICAL OFFICER: Lupe Betancourt and Leeann Hillman STATUS: inpatient INDICATIONS: The patient is a 72 yr old female here for an EGD due to nausea PROCEDURE PERFORMED: EGD w/ biopsy MEDICATIONS: None and Per Anesthesia. TOPICAL ANESTHETIC: none CONSENT: The patient understands the risks and benefits of the procedure and understands that these risks include, but are not limited to: sedation, allergic reaction, infection, perforation and/or bleeding. Alternative means of evaluation and treatment include, among others: physical exam, x-rays, and/or surgical intervention. The patient elects to proceed with this endoscopic procedure. medical equipment was checked for proper function. Hand hygiene and appropriate measures for infection prevention was taken. After the risks, benefits and alternatives of the procedure were thoroughly explained, Informed consent was verified, confirmed and timeout was successfully executed by the treatment team. The patient was anesthetized with topical anesthesia and the Pentax [id number] endoscope was introduced through the mouth and advanced to the second portion of the duodenum. Retroflexion was performed and was normal The gastroscope was then slowly withdrawn and removed. ESOPHAGUS: The esophagus was otherwise normal. STOMACH: There was mild gastritis in the gastric antrum. Multiple biopsies were performed using cold forceps. Sample sent for histology. DUODENUM: The duodenal mucosa appeared normal in the bulb and second portion of the duodenum. ADVERSE EVENTS: There were no complications. IMPRESSIONS: 1. The esophagus was otherwise normal 2. There was mild gastritis in the gastric antrum; multiple biopsies were performed 3. Normal duodenal mucosa in the bulb and second portion of the duodenum 4. Retroflexion was performed and was normal RECOMMENDATIONS: 1. Await biopsy results. Biopsy results will not be ready for 7-10 days. If you don't hear from us in two weeks, call our office for biopsy results. 2. Continue PPI PATIENT CONDITION: stable DISPOSITION: Observation REPEAT EXAM: NONE Brief History - From Admission Patient is a 72-year-old female. Who presented to the emergency department early last night came into the emergency department for a evaluation of persistent nausea, dizziness, and rectal bleeding. Patient has a history of being on peritoneal dialysis for about a year. Has been doing well with this. Has history of hypertension, history of hyperlipidemia, history of diabetes mellitus type 2. CAT scan of the abdomen was negative. Her hemoglobin is low normal. Did not have a peritoneal dialysis last night since she was here in the hospital. Nephrology has been consult. Patient has also been consult with gastroenterology we have ordered for her to have an EGD tomorrow CBC/BMP: 11/13/17 1024 11/13/17 1024 Significant Findings Laboratory Tests Test 11/11/17 16:20 11/12/17 00:42 11/12/17 05:00 11/12/17 11:10 Mean Corpuscular Hemoglobin Concent 31.6 % (32.0-36.0) 31.9 % (32.0-36.0) Red Cell Distribution Width 17.6 % (11.6-17.2) 18.0 % (11.6-17.2) Neutrophils (%) (Auto) 71.5 % (16.0-70.0) 73.4 % (16.0-70.0) Monocytes (%) (Auto) 9.8 % (0.0-8.0) 9.5 % (0.0-8.0) Monocytes # (Auto) 1.0 TH/MM3 (0-0.9) Activated Partial Thromboplast Time 23.6 SEC (24.3-30.1) Blood Urea Nitrogen 55 MG/DL (7-18) 68 MG/DL (7-18) Creatinine 12.97 MG/DL (0.50-1.00) 13.79 MG/DL (0.50-1.00) Random Glucose 233 MG/DL (74-106) 179 MG/DL (74-106) Calcium Level 7.9 MG/DL (8.5-10.1) 8.0 MG/DL (8.5-10.1) Magnesium Level 3.5 MG/DL (1.5-2.5) Aspartate Amino Transf (AST/SGOT) 14 U/L (15-37) 10 U/L (15-37) Sodium Level 132 MEQ/L (136-145) 133 MEQ/L (136-145) Chloride Level 93 MEQ/L (98-107) 93 MEQ/L (98-107) Anion Gap 17 MEQ/L (5-15) 20 MEQ/L (5-15) Estimat Glomerular Filtration Rate 3 ML/MIN (>89) 3 ML/MIN (>89) Creatine Kinase MB 4.5 NG/ML (0.5-3.6) Troponin I 0.11 NG/ML (0.02-0.05) 0.11 NG/ML (0.02-0.05) 0.14 NG/ML (0.02-0.05) Hemoglobin 10.9 GM/DL (11.6-15.3) Urine Turbidity HAZY (CLEAR) Urine Protein 300 mg/dL (NEG-TRACE) Urine Glucose (UA) 300 mg/dL (NEG) Urine Occult Blood SMALL (NEG) Urine Leukocyte Esterase LARGE (NEG) Urine RBC 8 /hpf (0-3) Urine WBC 35 /hpf (0-5) Urine Bacteria FEW /hpf (NONE) Urine Mucus FEW /lpf (OCC) Albumin 3.2 GM/DL (3.4-5.0) Carbon Dioxide Level 19.9 MEQ/L (21.0-32.0) Test 11/12/17 16:25 11/12/17 19:58 11/13/17 10:24 Hemoglobin 11.1 GM/DL (11.6-15.3) 11.2 GM/DL (11.6-15.3) 11.1 GM/DL (11.6-15.3) Red Blood Count 3.94 MIL/MM3 (4.00-5.30) Mean Corpuscular Hemoglobin Concent 31.2 % (32.0-36.0) Red Cell Distribution Width 17.7 % (11.6-17.2) Monocytes (%) (Auto) 12.2 % (0.0-8.0) Eosinophils (%) (Auto) 4.6 % (0.0-4.0) Blood Urea Nitrogen 67 MG/DL (7-18) Creatinine 13.53 MG/DL (0.50-1.00) Albumin 3.2 GM/DL (3.4-5.0) Calcium Level 8.0 MG/DL (8.5-10.1) Phosphorus Level 10.1 MG/DL (2.5-4.9) Magnesium Level 3.5 MG/DL (1.5-2.5) Aspartate Amino Transf (AST/SGOT) 12 U/L (15-37) Chloride Level 96 MEQ/L (98-107) Anion Gap 18 MEQ/L (5-15) Estimat Glomerular Filtration Rate 3 ML/MIN (>89) Hemoglobin A1c 7.3 % (4.3-6.0) Imaging Last Impressions Abdomen/Pelvis CT 11/11/17 0000 Signed Impressions: Service Date/Time: Saturday, November 11, 2017 19:10 - CONCLUSION: Negative noncontrast CT abdomen/pelvis. Lazaro Mendez MD PE at Discharge GENERAL: Awake alert and oriented talkative and cooperative wants to go home SKIN: Warm and dry. HEAD: Atraumatic. Normocephalic. EYES: Pupils equal and round. No scleral icterus. No injection or drainage. Extraocular muscles intact ENT: No nasal bleeding or discharge. Mucous membranes pink and moist. Tongue is midline NECK: Trachea midline. No JVD. Supple CARDIOVASCULAR: Regular rate and rhythm. S1 and S2 no S3 or S4 no heave or thrill or rub or gallop RESPIRATORY: No accessory muscle use. Clear to auscultation. Breath sounds equal bilaterally. GASTROINTESTINAL: Abdomen soft, non-tender, nondistended. Hepatic and splenic margins not palpable. Peritoneal dialysis catheter in place MUSCULOSKELETAL: Extremities without clubbing, cyanosis, or edema. No obvious deformities. NEUROLOGICAL: Awake and alert. No obvious cranial nerve deficits. Motor grossly within normal limits. Five out of 5 muscle strength in the arms and legs. Normal speech. PSYCHIATRIC: Appropriate mood and affect; insight and judgment normal. Hospital Course Patient is a 72-year-old female. Who presented to the emergency department early last night came into the emergency department for a evaluation of persistent nausea, dizziness, and rectal bleeding. Patient has a history of being on peritoneal dialysis for about a year. Has been doing well with this. Has history of hypertension, history of hyperlipidemia, history of diabetes mellitus type 2. CAT scan of the abdomen was negative. Her hemoglobin is low normal. Did not have a peritoneal dialysis last night since she was here in the hospital. Nephrology has been consult. Patient has also been consult with gastroenterology we have ordered for her to have an EGD tomorrow 12 patient had EGD with GI showed gastritis Tolerating her peritoneal dialysis without issues Wants to go home today We'll make sure she is on a PPI and can be discharged home later today Discussed with patient and RN wants to go home discussed with family also Pt Condition on Discharge: Good Discharge Disposition: Discharge Home Discharge Time: <= 30 minutes Discharge Instructions DIET: Follow Instructions for: Heart Healthy Diet, Diabetic Diet, Renal Failure Diet Speech Therapy-Diet Recommends: Regular Activities you can perform: Regular-No Restrictions Other Activity Instructions: RESUME PERITONEAL DIALYSIS NIGHTLY Follow up Referrals: Gastroenterology - 10 Days with Oscar Butler MD Nephrology - 1 Week with Vazquez Bender M.d. PCP Follow-up - 1 Week with ySlvester Allen DO New Medications: Pantoprazole (Protonix) 40 Mg Tab 40 MG PO BID for Ulcer Prevention for 30 Days, #60 TAB 0 Refills Continued Medications: Aspirin (Aspirin) 325 Mg Tab 325 MG PO DAILY, #30 TAB 0 Refills B-Complex W/ C & Folic Acid (Renal Vitamin) 1 Cap 1 CAP PO DAILY for Nutritional Supplement, #30 CAP 0 Refills If on dialysis, take after treatment. Calcium Acetate (Phosphate Binder) (Calcium Acetate (Phosphate Binder)) 667 Mg Cap 667 MG PO TID for Hyperphosphatemia, #90 CAP 0 Refills Candesartan (Atacand) 32 Mg Tab 32 MG PO DAILY for Blood Pressure Management, #30 TAB 0 Refills Cholecalciferol (Vitamin D-3) 1,000 Unit Cap 1 CAP PO MWF Clonidine (Catapres) 0.3 Mg Tab 0.3 MG PO Q8HR for Blood Pressure Management, #60 TAB 0 Refills Cyanocobalamin (Vitamin B-12) 1,000 Mcg Tab 1000 MCG PO DAILY for Nutritional Supplement, #1 BOTTLE 0 Refills Doxazosin (Doxazosin) 2 Mg Tab 2 MG PO BID, #60 TAB 0 Refills Furosemide (Lasix) 40 Mg Tab 80 MG PO BID, #60 TAB 0 Refills Insulin Glargine Inj (Lantus Inj) 1,000 Unit/10 Ml Vial 16-23 UNITS SQ HS for Blood Sugar Management, VIAL 0 Refills Nifedipine ER 24 HR (Nifedipine ER 24 HR) 60 Mg Tab 60 MG PO BID, #30 TAB 0 Refills [place]-3 Fatty Acids ([place] 3 500 500 mg) 1 Cap Cap 1 CAP PO DAILY Rosuvastatin (Crestor) 10 Mg Tab 10 MG PO DAILY for Cholesterol Management, #30 TAB 0 Refills Fitz White DO Nov 13, 2017 17:39
--- NOTE | 2017-11-13 17:42 | HHI.FF ---
Face to Face Verification Diagnosis: (1) Chronic kidney disease (CKD), stage V (2) Nausea and vomiting (3) Anemia (4) GERD (gastroesophageal reflux disease) (5) Diabetes mellitus (6) Hyperlipidemia (7) Acute on chronic diastolic heart failure (8) GI bleed Physical Therapy Order: Evaluate and Treat, Improve ambulation, Strength and gait training Occupational Therapy Order: Evaluate and Treat, Improve ADL, Gross motor coordination, Fine motor coordination Home Health Nursing Order: Nursing assessment with vital signs Telehealth Home Health Aide Order: To Assist In: Bathing and personal care, tie fastener and meal prep I have seen patient Belle Slater on 11/13/17. My clinical findings support the need for the requested home health care services because: Ltd mobility - disease progression Deconditioned w/ increased weakness I certify that my clinical findings support that this patient is homebound because: Unsteady gait/balance Need for psychosocial assistance Fitz White DO Nov 13, 2017 17:42
== END 2017-11-13 19:44 | disposition home or self-care (01) | DRG 391 ==
LOC: NEPE 15:08 → NEDA 21:18 → OBSVTOIN 21:18 → NEPHCDU 22:24
PROVIDERS: ADMIT Hospitalist; ATTEND Hospitalist
PROC: 3E1M39Z Irrigation of Peritoneal Cavity using Dialysate, Percutaneous Approach (ICD-10-PCS; 2017-11-12)
PROC: 0DB68ZX Excision of Stomach, Via Natural or Artificial Opening Endoscopic, Diagnostic (ICD-10-PCS; principal; 2017-11-13 11:46)
DX: K29.50 Unspecified chronic gastritis without bleeding (principal); N18.6 End stage renal disease; I12.0 Hypertensive chronic kidney disease with stage 5 chronic kidney disease or end stage renal disease; E11.22 Type 2 diabetes mellitus with diabetic chronic kidney disease; K92.1 Melena; J44.9 Chronic obstructive pulmonary disease, unspecified; D63.1 Anemia in chronic kidney disease; K21.9 Gastro-esophageal reflux disease without esophagitis; E78.5 Hyperlipidemia, unspecified; K59.00 Constipation, unspecified; R11.2 Nausea with vomiting, unspecified; R29.6 Repeated falls
CPT/HCPCS: 74176; 76937; 80053; 81001; 82550; 82552; 82948; 83036; 83735; 84100; 84439; 84443; 84484; 85014; 85018; 85025; 85610; 85730; 86403; 87086; 88305; 88312; 90935; 93005; C9113; J1815; J2405; J7040

== ENCOUNTER 2017-11-17 05:32 | Emergency (ER) | payer MEDICARE, BC ==
[~2017-11-17 05:32] MED LIST changes: -MIRA33504 PO; -PERI8.6T PO; +PROT40TA PO; +ROSU10 PO
[2017-11-17] MEDS ORDERED: DEXTROSE 50% IN WATER 50 ML SYRINGE IV ONE (05:33)
[2017-11-17] MEDS ORDERED: CALCIUM CHLORIDE 10% SOLN 1 GRAM/10 ML SYR IV ONE (05:33)
[2017-11-17] MEDS ORDERED: AMIODARONE HCL 150 MG/3 ML VIAL IV ONE (05:33)
[2017-11-17 05:35] VITALS: PULSE 0; RESP 0
[2017-11-17] MEDS ORDERED: ONDA4TAB7 SL (05:59)
--- NOTE | 2017-11-17 06:05 | PD ---
HPI Chief Complaint: cardiac arrest Time Seen by Provider: 05:58 Travel History International Travel<30 days: No Contact w/Intl Traveler<30days: No History of Present Illness HPI This is a 72 year old female who is on peritoneal dialysis who presents to the emergency department in cardiac arrest. The patient was evidently awake and talking to her family early this morning, but had been having diarrhea and was feeling very weak. She went unresponsive and was unresponsive for about 10 minutes prior to EMS arrival. When EMS arrived they found her to be in ventricular fibrillation. She was defibrillated several times, given amiodarone , calcium, and epinephrine x5 and an intraosseous line was established. A combitube was placed. Pt. was transported to the emergency department. PFSH Past Medical History Hx Anticoagulant Therapy: Yes Arthritis: No Asthma: No Autoimmune Disease: No Blood Disorders: No Anxiety: No Depression: No Heart Rhythm Problems: No Cancer: No Cardiovascular Problems: Yes (dialysis patient) High Cholesterol: No Chemotherapy: No Chest Pain: No Congestive Heart Failure: No COPD: No Cerebrovascular Accident: No Coronary Artery Disease: No Diabetes: Yes Diminished Hearing: No Endocrine: Yes Gastrointestinal Disorders: Yes (severe CONSTIPATION) GERD: No Genitourinary: No Headaches: Yes (occasional) Hepatitis: No Hiatal Hernia: No Hypertension: Yes (HX HYPERTENSIVE CRISIS) Immune Disorder: No Implanted Vascular Access Dvce: No Kidney Stones: No Musculoskeletal: No (weakness) Neurologic: Yes (weakness) Psychiatric: No Reproductive: No Respiratory: No Migraines: No Radiation Therapy: No Renal Failure: Yes Seizures: No Sickle Cell Disease: No Sleep Apnea: No Thyroid Disease: No Ulcer: No Menopausal: Yes Past Surgical History Abdominal Surgery: Yes (peritoneal) AICD: No Arteriovenous Shunt: No Cardiac Surgery: No Section: Yes (x2) Ear Surgery: No Endocrine Surgery: No Eye Surgery: Yes (lasik YOLIE., YOLIE. CATARACT EXTRACT.) Genitourinary Surgery: No Gynecologic Surgery: Yes Insulin Pump: No Joint Replacement: No Neurologic Surgery: No Oral Surgery: Yes Pacemaker: No Thoracic Surgery: No Tonsillectomy: Yes Other Surgery: Yes Social History Alcohol Use: No Tobacco Use: No Substance Use: No Allergies-Medications (Allergen,Severity, Reaction): Coded Allergies: Iodinated Contrast- Oral and IV Dye (Unverified Allergy, Severe, Tachycardia, 07/09/17) cyclopentolate (Unverified Allergy, Severe, Shortness of Breath, 07/09/17) dexamethasone (Unverified Allergy, Severe, Shortness of Breath, 07/09/17) diatrizoate meglumine (Unverified Allergy, Severe, DYSPNEA, SWELLING, 07/09) gadobenic acid (Unverified Allergy, Severe, DYSPNEA, SWELLING, 07/09/17) gadodiamide (Unverified Allergy, Severe, DYSPNEA, SWELLING, 07/09/17) gadoteridol (Unverified Allergy, Severe, DYSPNEA, SWELLING, 07/09/17) iodixanol (Unverified Allergy, Severe, DYSPNEA, SWELLING, 07/09/17) iohexol (Unverified Allergy, Severe, DYSPNEA, SWELLING, 07/09/17) labetalol (Unverified Allergy, Severe, Itching, 07/09/17) HIVES ofloxacin (Unverified Allergy, Severe, Shortness of Breath, 07/09/17) tobramycin (Unverified Allergy, Severe, Shortness of Breath, 07/09/17) bevacizumab (Unverified Allergy, Unknown, 07/09/17) candesartan (Unverified Allergy, Unknown, 07/09/17) exenatide (Unverified Allergy, Unknown, 07/09/17) lisinopril (Unverified Allergy, Unknown, 07/09/17) methylprednisolone (Unverified Allergy, Unknown, 07/09/17) terfenadine (Unverified Allergy, Unknown, 07/09/17) diphenhydramine (Unverified Adverse Reaction, Unknown, 07/09/17) guanfacine (Unverified Adverse Reaction, Unknown, 07/09/17) hydralazine (Unverified Adverse Reaction, Unknown, 07/09/17) hydroxyzine (Unverified Adverse Reaction, Unknown, 07/09/17) lorazepam (Unverified Adverse Reaction, Unknown, 07/09/17) metoprolol (Unverified Adverse Reaction, Unknown, 07/09/17) nebivolol (Unverified Adverse Reaction, Unknown, 07/09/17) prednisone (Unverified Adverse Reaction, Unknown, 07/09/17) spironolactone (Unverified Adverse Reaction, Unknown, 07/09/17) warfarin (Unverified Adverse Reaction, Unknown, 07/09/17) Uncoded Allergies: BLOOD PRESSURE MEDS (Allergy, Severe, UNKNOWN, 03/19/11) SELDENE (Allergy, Severe, HIVES, 03/19/11) STEROID EYE DROPS (Allergy, Severe, ITCHING, BP ELEVATED, 10/04/16) Reported Meds & Prescriptions Reported Meds & Active Scripts Active Protonix (Pantoprazole Sodium) 40 Mg Tab 40 Mg PO BID 30 Days Reported Crestor (Rosuvastatin Calcium) 10 Mg Tab 10 Mg PO DAILY Renal Vitamin (B-Complex W/ C & Folic Acid) 1 Cap 1 Cap PO DAILY If on dialysis, take after treatment. [place] 3 500 500 mg ([place]-3 Fatty Acids) 1 Cap Cap 1 Cap PO DAILY Vitamin D-3 (Cholecalciferol) 1,000 Unit Cap 1 Cap PO MWF Doxazosin (Doxazosin Mesylate) 2 Mg Tab 2 Mg PO BID Atacand (Candesartan Cilexetil) 32 Mg Tab 32 Mg PO DAILY Aspirin 325 Mg Tab 325 Mg PO DAILY Catapres (Clonidine) 0.3 Mg Tab 0.3 Mg PO Q8HR Lantus Inj (Insulin Glargine) 1,000 Unit/10 Ml Vial 16-23 Units SQ HS Lasix (Furosemide) 40 Mg Tab 80 Mg PO BID Vitamin B-12 (Cyanocobalamin) 1,000 Mcg Tab 1,000 Mcg PO DAILY Calcium Acetate (Phosphate Binder) 667 Mg Cap 667 Mg PO TID Nifedipine ER 24 HR (Nifedipine) 60 Mg Tab 60 Mg PO BID Review of Systems ROS Limitations: Clinical Condition Physical Exam Narrative GENERAL:Unresponsive SKIN: Peritoneal dialysis catheter right abdomen HEAD: Atraumatic. Normocephalic. EYES: Pupils fixed and dilated No injection or drainage. ENT: Moist mucous membranes NECK: Trachea midline. CARDIOVASCULAR: Pulseless RESPIRATORY: Bilateral coarse breath sounds with combitube GASTROINTESTINAL: Abdomen soft, distended MUSCULOSKELETAL: No obvious deformities. NEUROLOGICAL: Unresponsive MDM Medical Decision Making Medical Screen Exam Complete: Yes Emergency Medical Condition: Yes Differential Diagnosis arrythmia, hyperkalemia, hypovolemia, myocardial infarction, sepsis Narrative Course This is a 72 year old female dialysis patient who presents to the emergency department in cardiac arrest. On arrival she was found to be in ventricular fibrillation. She was given calcium chloride x2 in the thought that she may have severe hyperkalemia, and she was given 10 u IV insulin and D50. She was defibrillated with normal pad position and anterior posterior pad position. Ultimately she was asystolic. Further resuscitation efforts were deemed futile given lengthy resuscitation and patient's comorbidities. Pt's daughter and member services coordinator was brought to the bedside during resuscitation and were with her at the time of . Diagnosis Primary Impression: Cardiac arrest Additional Impression: ESRD (end stage renal disease) Disposition: 20 Condition: Julia Dillon MD Nov 17, 2017 06:05
== END 2017-11-17 07:52 | disposition expired ==
LOC: PHED 05:32
DX: I46.9 Cardiac arrest, cause unspecified (principal); R19.7 Diarrhea, unspecified; R53.1 Weakness; E11.22 Type 2 diabetes mellitus with diabetic chronic kidney disease; I12.0 Hypertensive chronic kidney disease with stage 5 chronic kidney disease or end stage renal disease; N18.6 End stage renal disease; Z99.2 Dependence on renal dialysis; Z79.82 Long term (current) use of aspirin; Z79.899 Other long term (current) drug therapy
CPT/HCPCS: 99291; J0282